=== PATIENT | male | born 1950 | race Caucasian/White ===

== ENCOUNTER 2017-11-27 07:11 | Emergency (ER) | payer MEDICARE, BC ==
[2017-11-27] MEDS ORDERED: Fentanyl 100 MCG/2 ML VIAL ONE (07:39)
[2017-11-27] MEDS ORDERED: Ketorolac Tromethamine 60 MG/2 ML VIAL ONE (07:39)
[2017-11-27] MEDS ORDERED: Lorazepam 2 MG/ML VIAL ONE (07:39)
[2017-11-27 07:43] LABS: #Basophils 0.1 thou/uL (0.0-0.2); #Eosinphils 0.2 thou/uL (0.0-0.7); #Lymphocytes 1.9 thou/uL (1.20-3.40); #Monocytes 1.1 thou/uL (0.11-0.59); #Neutrophils 10.3 thou/uL (1.40-6.50); %Basophils 0.4 % (0.0-1.0); %Eosinophils 1.2 % (0.0-10.0); %Lymphocytes 14.3 % (21.0-51.0); %Neutrophils 76.1 % (42.0-75.0); Hemoglobin 14.8 g/dL (14.0-18.0); Mean Corpuscular HGB CONC 34.2 g/dL (32.0-36.0); Mean Corpuscular Hemoglobin 30.2 pg (27.0-31.0); Mean Corpuscular Volume 88.3 fL (78.0-98.0); Mean Platelet Volume 8.3 fL (7.4-10.4); Platelet Count 211 thou/uL (130-400); RBC Distribution Width 12.2 % (11.5-14.5); Red Blood Cell (RBC) Count 4.91 mill/uL (4.70-6.10); White Blood Cell (WBC) Count 13.5 thou/uL (4.8-10.8)
--- NOTE | 2017-11-27 08:07 | RAD ---
PELVIS AP STANDARD: HISTORY: Pain. Injury 1 year ago. COMPARISON: Abdomen radiographs 06/10/2016. FINDINGS: There continues to be some enthesopathic changes of the greater trochanter. No acute fracture or mal alignment. Mild degenerative changes of the SI joints and pubic symphysis. IMPRESSION: No acute fracture or malalignment. Enthesopathic changes of the left greater trochanter demonstrate chronic gluteus medius/minimus tendinosis and greater trochanteric bursitis. POS: CET
--- NOTE | 2017-11-27 08:22 | RAD ---
LEFT HIP 2 VIEWS: INDICATION: Injury. Pain. COMPARISON: Radiograph 06/10/2016. FINDINGS: There are surgical clips in the medial left thigh. Mild enthesopathic changes of the greater trochan ter. No acute fracture or malalignment. IMPRESSION: Enthesopathic changes of the greater trochanter with some erosions along the greater trochanteric cor fracisco can be sequelae of chronic gluteus medius/minimus tendinosis and greater trochanteric bursitis. POS: CET
== END 2017-11-27 08:31 | disposition home or self-care (01) ==
LOC: ERS 07:11
DX: M25.552 Pain in left hip (principal); E11.9 Type 2 diabetes mellitus without complications; K21.9 Gastro-esophageal reflux disease without esophagitis; E78.5 Hyperlipidemia, unspecified; I10 Essential (primary) hypertension
CPT/HCPCS: 36415; 72170; 85025; 85652; 86140; 96372; J1885; J2060; J3010

== ENCOUNTER 2018-11-10 05:23 | Emergency (ER) | payer MEDICARE, BC ==
[2018-11-10 06:24] LABS: #Eosinphils 0.1 thou/uL (0.0-0.7); #Lymphocytes 0.6 thou/uL (1.20-3.40); #Neutrophils 5.9 thou/uL (1.40-6.50); %Basophils 0.3 % (0.0-1.0); %Eosinophils 1.2 % (0.0-10.0); %Monocytes 12.7 % (0.0-10.0); %Neutrophils 77.8 % (42.0-75.0); Hemoglobin 11.8 g/dL (14.0-18.0); Mean Corpuscular Hemoglobin 31.1 pg (27.0-31.0); Mean Corpuscular Volume 88.8 fL (78.0-98.0); Mean Platelet Volume 8.1 fL (7.4-10.4); Platelet Count 166 thou/uL (130-400); RBC Distribution Width 12.3 % (11.5-14.5); Red Blood Cell (RBC) Count 3.79 mill/uL (4.70-6.10); White Blood Cell (WBC) Count 7.5 thou/uL (4.8-10.8)
[2018-11-10 06:45] LABS: ALT (SGPT) 25 U/L (8-55); AST (SGOT) 21 U/L (5-34); Albumin 3.4 g/dL (3.4-4.8); Alkaline Phosphatase 68 U/L (40-150); Anion Gap 15 mmol/L (10-20); BUN (Urea Nitrogen) 10 mg/dL (8.4-25.7); Bilirubin, Total 0.6 mg/dL (0.2-1.2); Calc. Creatinine Clearance 0 mL/min (70-130); Calcium 8.5 mg/dL (7.8-10.44); Carbon Dioxide 26 mmol/L (23-31); Chloride 101 mmol/L (98-107); Estimated GFR-MDRD 86; Globulin 2.3 g/dL (2.4-3.5); Glucose 150 mg/dL (80-115); Potassium 3.6 mmol/L (3.5-5.1); Protein, Total 5.7 g/dL (5.8-8.1); Sodium 138 mmol/L (136-145)
[2018-11-10] MEDS ORDERED: Azithromycin 250 MG TAB ONE (06:45)
[2018-11-10] MEDS ORDERED: cefTRIAXone\\ROCEPHIN 1 GM VIAL ONE (06:45)
[2018-11-10] MEDS ORDERED: Lidocaine 1% (PF) 30 ML VIAL ONE (06:45)
--- NOTE | 2018-11-10 07:27 | RAD ---
CHEST 1 VIEW: INDICATION: Emergency exam. COMPARISON: Prior exam dated 01/31/2012. FINDINGS: There is persistent cardiomegaly. There is mild pulmonary vascular congestion. There is airway opac ity obscuring the left heart border suspicious for a lingular airspace opacity. Midline sternotomy c hanges are stable. No acute osseous abnormality is evident. IMPRESSION: 1. Findings suspicious for a lingular airspace opacity possibility related to pneumonia. Recommend a 2-view chest radiograph for confirmation. 2. Persistent cardiomegaly with mild pulmonary vascular congestion. POS: BH
== END 2018-11-10 07:15 | disposition home or self-care (01) ==
LOC: ERS 05:23
DX: J18.9 Pneumonia, unspecified organism (principal); I10 Essential (primary) hypertension; E11.9 Type 2 diabetes mellitus without complications; K21.9 Gastro-esophageal reflux disease without esophagitis; E78.5 Hyperlipidemia, unspecified; Z79.84 Long term (current) use of oral hypoglycemic drugs; Z79.82 Long term (current) use of aspirin; Z79.899 Other long term (current) drug therapy
CPT/HCPCS: 36415; 71045; 80053; 83880; 84484; 85025; 87804; 96372; J0696; J2001

== ENCOUNTER 2018-11-12 13:52 | Inpatient (IN) | payer MEDICARE, BC ==
[~2018-11-12 13:52] MED LIST: ISOVUE-370 76%-LOCM 1 ML ONE
[2018-11-12 14:48] LABS: Actual Bicarbonate (HCO3a) 25.1 mEq/L (22-28); Analyzer IN Cardio ER; Base Excess (BEa) 2.2 mEq/L (-2.0 to +3.0); CO2 Tension 33.5 mmHg (35.0-45.0); Calcium, Ionized 1.15 mmol/L (1.12-1.30); Carboxyhemoglobin (COHb) 0.6 gm% (0.0-3.0); Hemoglobin (Hb) 12.4 g/dL (14.0-18.0); O2 Tension (PaO2) 70.2 mmHg (> 80.0); Potassium - ABG Lab 4.15 mmol/L (3.70-5.30); pH, Arterial 7.49 (7.35-7.45)
[2018-11-12] MEDS ORDERED: Dexamethasone 10 MG/ML VIAL ONE (14:49)
[2018-11-12 14:51] LABS: ALV-art Gradient 37.655 (0-20); Puncture Site RRA
[2018-11-12] MEDS ORDERED: Albuterol Sulfate 2.5 mg/3 ml Neb ONE (14:54)
[2018-11-12] MEDS ORDERED: Albuterol Sulfate 2.5 mg/0.5 ml Neb ONE (14:54)
[2018-11-12 14:58] LABS: #Eosinphils 0.1 thou/uL (0.0-0.7); #Monocytes 0.7 thou/uL (0.11-0.59); #Neutrophils 5.9 thou/uL (1.40-6.50); %Basophils 0.1 % (0.0-1.0); %Eosinophils 1.8 % (0.0-10.0); %Lymphocytes 13.1 % (21.0-51.0); %Monocytes 8.8 % (0.0-10.0); %Neutrophils 76.2 % (42.0-75.0); Hemoglobin 11.6 g/dL (14.0-18.0); Mean Corpuscular HGB CONC 34.5 g/dL (32.0-36.0); Mean Corpuscular Hemoglobin 30.7 pg (27.0-31.0); Mean Platelet Volume 7.9 fL (7.4-10.4); Platelet Count 277 thou/uL (130-400); RBC Distribution Width 12.4 % (11.5-14.5); Red Blood Cell (RBC) Count 3.77 mill/uL (4.70-6.10); White Blood Cell (WBC) Count 7.8 thou/uL (4.8-10.8)
[2018-11-12 15:21] LABS: ALT (SGPT) 23 U/L (8-55); AST (SGOT) 17 U/L (5-34); Albumin 3.6 g/dL (3.4-4.8); Alkaline Phosphatase 67 U/L (40-150); Anion Gap 10 mmol/L (10-20); BUN (Urea Nitrogen) 9 mg/dL (8.4-25.7); Bilirubin, Total 0.3 mg/dL (0.2-1.2); CK (CPK) 201 U/L (30-200); Calc. Creatinine Clearance 0 mL/min (70-130); Calcium 9.2 mg/dL (7.8-10.44); Carbon Dioxide 28 mmol/L (23-31); Chloride 101 mmol/L (98-107); Estimated GFR-MDRD Greater than 90; Globulin 2.4 g/dL (2.4-3.5); Glucose 128 mg/dL (80-115); Lipase 21 U/L (8-78); Sodium 135 mmol/L (136-145)
--- NOTE | 2018-11-12 15:44 | CT ---
EXAM: CT pulmonary angiogram with IV contrast and three-dimensional reconstructions PROVIDED CLINICAL HISTORY: Shortness of breath COMPARISON: None FINDINGS: There is no evidence for central or segmental pulmonary embolus. Median sternotomy changes and CABG c hanges are seen. The heart, pericardium and great vessels demonstrate an otherwise unremarkable CT appearance. There is lingular consolidation compatible with pneumonia. There are small bilateral pleural effusion s. The airway appears patent and of normal caliber. There is no evidence for thoracic lymph node enlarge ment. The visualized portions of the upper abdomen appear unremarkable. The osseous structures demonstrate no concerning osteoblastic or osteolytic lesions. IMPRESSION: 1. No evidence for central or segmental pulmonary embolus. 2. Lingular pneumonia and small bilateral pleural effusions.
[2018-11-12] MEDS ORDERED: Bisacodyl 5 MG TAB PO PRN (17:11)
[2018-11-12] MEDS ORDERED: Calcium Carbonate 500 MG ChewTAB PO PRN (17:11)
[2018-11-12] MEDS ORDERED: Acetaminophen 650 MG Suppository PR PRN (17:11)
[2018-11-12] MEDS ORDERED: Dextrose 5% in Water 1,000 ML IV PRN (17:19)
[2018-11-12] MEDS ORDERED: Dextrose 50% Abboject 50 ML SYRINGE SLOW IVP PRN (17:19)
[2018-11-12 18:33] VITALS: BMI 34.0
[2018-11-12] MEDS ORDERED: Ondansetron ODT 4 MG TAB SL PRN (18:41)
[2018-11-12] MEDS ORDERED: Sodium Chloride 0.9% 1,000 ML IV SCH (18:41)
[2018-11-12] MEDS ORDERED: Ondansetron PF 4 MG/2 ML Vial IVP PRN (18:41)
--- NOTE | 2018-11-12 20:12 | HP ---
PRIMARY CARE PROVIDER: Logan Rey DO CHIEF COMPLAINT: Shortness of breath. HISTORY OF PRESENT ILLNESS: Mr. Arteaga is a pleasant 68-year-old gentleman, who was seen at [facility] on November 12, 2018. He was on a cruise to [place] from to of this month. On November 06, he was in [place] when he started having cough. The cough was dry. He is unsure regarding fevers. He returned to this area on November 08. That day, he had headache and a temperature of 102 degrees Fahrenheit. He saw his primary care provider on the 09 of November. He was started on amoxicillin and prednisone. On the morning of , he had a temperature of 101 degrees Fahrenheit. He therefore came to the emergency room. He received azithromycin and ceftriaxone and was discharged home on oral antibiotics. He continued to have symptoms. He also reports shortness of breath. He has been unable to fall asleep. He therefore presented to the emergency room. REVIEW OF SYSTEMS: All systems were reviewed and found to be negative except for the pertinent positives mentioned above. PAST MEDICAL HISTORY: Diabetes mellitus type 2, gastroesophageal reflux disease, dyslipidemia, hypertension, coronary artery disease. PAST SURGICAL HISTORY: Coronary artery bypass graft x3 and knee arthroscopy. SOCIAL HISTORY: Rare alcohol use, no current tobacco use or recreational drug use. FAMILY HISTORY: Open-heart surgery in his father. CODE STATUS: I discussed his code status. He is full code. ALLERGIES: NO KNOWN DRUG ALLERGIES. CURRENT MEDICATIONS: 1. Metformin 1000 mg 2 times a day. 2. Metoprolol succinate 100 mg daily. 3. Crestor 20 mg daily. 4. Ramipril 10 mg 2 times a day. 5. Aspirin 325 mg daily. 6. Protonix 40 mg daily. 7. Onglyza 5 mg daily. 8. Vascepa 1 g two times a day. PHYSICAL EXAMINATION: GENERAL: On examination, Mr. Arteaga is awake and alert, not in acute distress. VITAL SIGNS: Blood pressure is 152/80, pulse 74, respiratory rate 21, and oxygen saturation 91% on room air. He is afebrile. EYES: No scleral icterus. No conjunctival pallor. ENT: Moist mucosal membranes. No oropharyngeal erythema or exudates. NECK: Supple, nontender, trachea is midline. RESPIRATORY: Accessory muscles of breathing are not active. Chest wall movements are symmetric bilaterally. Lungs are clear to auscultation without wheeze, rhonchi, or crepitations. CARDIOVASCULAR: S1 and S2 are heard, regular. Peripheral pulses palpable. ABDOMEN: Soft, nontender, bowel sounds are heard. NEUROLOGIC: Cranial nerves 2 through 12 are intact. SKIN: No rashes or subcutaneous nodules. MUSCULOSKELETAL: Power is 5/5 in all 4 extremities. LYMPHATIC: No cervical lymphadenopathy. PSYCHIATRIC: Normal mood, normal affect, the patient is oriented to person, place, and time. LABORATORY DATA: Mr. Arteaga's labs and investigations were reviewed. He had CT angiogram of the chest, which showed lingular pneumonia and small bilateral pleural effusions. There was no evidence for central or segmental pulmonary embolus. He has normal white count, normocytic anemia with hemoglobin 11.6, normal platelet count, decreased sodium of 135, normal potassium, normal lactic acid, elevated CK of 201, unremarkable LFTs and mildly elevated BNP of 219.2. Arterial blood gases showed pH 7.49, pCO2 of 33.5, and PO2 of 70.2. ASSESSMENT AND PLAN: Mr. Arteaga is a pleasant 68-year-old gentleman, who was seen at [facility] on November 12, 2018. His problem list includes: 1. Community-acquired pneumonia: Mr. Arteaga is presenting with community-acquired pneumonia, likely bacterial due to gram-negative rods. He will be admitted to the hospital, since he has failed outpatient therapy. He has received intravenous levofloxacin today, since in the recent past he has received intravenous ceftriaxone and azithromycin without improvement in his symptoms. I will continue him on levofloxacin. Blood cultures have been sent, we will follow blood cultures. 2. Coronary artery disease: This appears to be stable, we will resume home medications. 3. Diabetes mellitus type 2: We will start him on Accu-Cheks and insulin sliding scale. We will continue metformin. 4. Gastroesophageal reflux disease: Stable, continue pantoprazole. Many thanks for allowing me to participate in your patient's care. Please feel free to contact me with any questions or concerns. LEVEL OF RISK: Moderate. LEVEL OF COMPLEXITY: Moderate. Job ID: [id number]
[2018-11-12] MEDS: Rosuvastatin 20 MG TAB PO SCH (21:28)
[2018-11-12] MEDS: Ramipril 5 MG CAP PO SCH (21:28)
[2018-11-12] MEDS: HumaLOG 300 UNITS/3 ML VIAL SC PRN (23:35)
[2018-11-13 04:06] LABS: #Lymphocytes 0.4 thou/uL (1.20-3.40); #Monocytes 0.4 thou/uL (0.11-0.59); #Neutrophils 7.2 thou/uL (1.40-6.50); %Basophils 0.1 % (0.0-1.0); %Eosinophils 0.2 % (0.0-10.0); %Lymphocytes 5.2 % (21.0-51.0); %Monocytes 4.5 % (0.0-10.0); %Neutrophils 90.1 % (42.0-75.0); Hemoglobin 11.1 g/dL (14.0-18.0); Mean Corpuscular Hemoglobin 30.7 pg (27.0-31.0); Mean Platelet Volume 7.7 fL (7.4-10.4); Platelet Count 289 thou/uL (130-400); RBC Distribution Width 12.2 % (11.5-14.5); Red Blood Cell (RBC) Count 3.61 mill/uL (4.70-6.10); White Blood Cell (WBC) Count 7.9 thou/uL (4.8-10.8)
[2018-11-13 04:28] LABS: Anion Gap 13 mmol/L (10-20); BUN (Urea Nitrogen) 9 mg/dL (8.4-25.7); Calc. Creatinine Clearance 127 mL/min (70-130); Calcium 8.8 mg/dL (7.8-10.44); Carbon Dioxide 23 mmol/L (23-31); Chloride 102 mmol/L (98-107); Estimated GFR-MDRD Greater than 90; Glucose 181 mg/dL (80-115); Potassium 3.7 mmol/L (3.5-5.1); Sodium 134 mmol/L (136-145)
[2018-11-13] MEDS ORDERED: Melatonin 3 MG TAB PO SCH (04:30)
[2018-11-13] MEDS: HumaLOG 300 UNITS/3 ML VIAL SC PRN (06:48)
[2018-11-13] MEDS: metFORMIN 500 MG TAB PO SCH ×2 (08:41→16:53)
[2018-11-13] MEDS: Enoxaparin Sodium 40 MG/0.4 ML SYRINGE SC SCH (08:42)
[2018-11-13] MEDS: Aspirin 325 mg Enteric Coated Tablet PO SCH (08:42)
[2018-11-13] MEDS: Multivitamin W/ Minerals 1 TAB PO SCH (08:42)
[2018-11-13] MEDS: Ramipril 5 MG CAP PO SCH ×2 (08:42→20:37)
[2018-11-13] MEDS: Ubidecarenone 50 MG CAP PO SCH (08:42)
[2018-11-13 10:21] LABS: Troponin I Less than 0.010 ng/mL (< 0.028)
[2018-11-13] MEDS: Furosemide 40 MG/4 ML VIAL SLOW IVP SCH (13:05)
--- NOTE | 2018-11-13 13:19 | PDOC.HOSPP ---
- Subjective Encounter Date: 11/13/18 Encounter Time: 07:40 Subjective: Pt seen for followup re: pneumonia. Feels short of breath. - Objective Vital Signs & Weight: Vital Signs (12 hours) Temp Pulse Resp BP BP Pulse Ox 11/13/18 11:57 98.4 F 72 16 117/68 98 11/13/18 08:42 128/75 11/13/18 07:39 97.6 F 62 16 128/75 100 11/13/18 04:13 98.1 F 72 20 124/68 95 11/13/18 04:09 98.1 F 72 20 124/68 95 11/13/18 01:36 78 18 99 Weight Admit Weight 230 lb Weight 230 lb 0.132 oz I&O: 11/12/18 11/13/18 11/14/18 06:59 06:59 06:59 Intake Total 1340 Output Total 900 Balance 440 Result Diagrams: 11/13/18 03:50 11/13/18 03:50 Additional Labs: Accuchecks 11/13/18 11/13/18 11/12/18 11:30 05:16 20:18 POC Glucose 119 H 186 H 233 H Labs and MARs reviewed by ne Hospitalist ROS - Review of Systems Respiratory: reports: cough, dry, SOB with excertion. denies: shortness of breath, hemoptysis, pleuritic pain, sputum, wheezing Cardiovascular: denies: chest pain, palpitations, orthopnea, paroxysmal noc. dyspnea, edema, light headedness - Medication Medications: Active Medications Generic Name Dose Route Start Last Admin Trade Name Freq PRN Reason Stop Dose Admin Aspirin 325 mg 11/13/18 09:00 11/13/18 08:42 Ecotrin PO 325 mg DAILY NGUYEN Administration Coenzyme Q10 100 mg 11/13/18 09:00 11/13/18 08:42 Coenzyme Q10 PO 100 mg DAILY NGUYEN Administration Enoxaparin Sodium 40 mg 11/13/18 09:00 11/13/18 08:42 Lovenox SC 40 mg 0900 NGUYEN Administration Furosemide 40 mg 11/13/18 09:00 11/13/18 13:05 Lasix SLOW IVP 40 mg DAILY NGUYEN Administration Insulin Human Lispro 0 units 11/12/18 17:19 11/13/18 06:48 Humalog SC 2 unit .MILD SLIDING SCALE PRN Administration Mild Correctional Scale Iron/Minerals/Multivitamins 1 tab 11/13/18 09:00 11/13/18 08:42 Theragran M PO 1 tab DAILY NGUYEN Administration Metformin HCl 1,000 mg 11/13/18 08:00 11/13/18 08:41 Glucophage PO 1,000 mg BID-WM NGUYEN Administration Metoprolol Succinate 100 mg 11/13/18 09:00 11/13/18 08:42 Toprol Xl PO 100 mg DAILY NGUYEN Administration Pantoprazole Sodium 40 mg 11/13/18 09:00 11/13/18 08:42 Protonix PO 40 mg DAILY NGUYEN Administration Ramipril 10 mg 11/12/18 21:00 11/13/18 08:42 Altace PO 10 mg BID NGUYEN Administration Rosuvastatin Calcium 20 mg 11/12/18 21:00 11/12/18 21:28 Crestor PO 20 mg HS NGUYEN Administration Sodium Chloride 10 ml 11/12/18 21:00 11/13/18 08:41 Flush - Normal Saline IVF 10 ml Q12HR NGUYEN Administration - Exam General Appearance: NAD Eye: anicteric sclera ENT: dry oral mucosa Neck: supple Heart: RRR, no rubs Respiratory: wheezes Gastrointestinal: soft, non-tender Extremities: no cyanosis, 1+ LE edema Skin: no rashes Neurological: no weakness Musculoskeletal: no muscle wasting Psychiatric: normal affect, normal behavior Hosp A/P (1) Pneumonia Code(s): J18.9 - PNEUMONIA, UNSPECIFIED ORGANISM Status: Acute (2) CHF (congestive heart failure) Code(s): I50.9 - HEART FAILURE, UNSPECIFIED Status: Suspected (3) CAD (coronary artery disease) Code(s): I25.10 - ATHSCL HEART DISEASE OF [place] CORONARY ARTERY W/O ANG PCTRS Status: Chronic (4) DM2 (diabetes mellitus, type 2) Status: Chronic (5) GERD (gastroesophageal reflux disease) Code(s): K21.9 - GASTRO-ESOPHAGEAL REFLUX DISEASE WITHOUT ESOPHAGITIS Status: Chronic (6) Dyslipidemia Code(s): E78.5 - HYPERLIPIDEMIA, UNSPECIFIED Status: Chronic - Plan Continue IV levofloxacin. Check 2D echo, trial IV furosemide (BNP elevated, LE edema, h/o CAD). HTN controlled. Reasonable control of blood sugars. Hyponatremia mild, likely asymptomatic. CAD stable.
[2018-11-13 15:19] LABS: Troponin I 0.011 ng/mL (< 0.028)
[2018-11-13] MEDS ORDERED: ALPRAZolam 0.25 MG TAB PO PRN (16:23)
[2018-11-13] MEDS: Rosuvastatin 20 MG TAB PO SCH (20:38)
[2018-11-13] MEDS: Melatonin 3 MG TAB PO PRN (20:38)
[2018-11-14] MEDS: Acetaminophen 325 MG TAB PO PRN ×2 (03:36→12:26)
[2018-11-14 05:24] LABS: #Eosinphils 0.2 thou/uL (0.0-0.7); #Lymphocytes 1.2 thou/uL (1.20-3.40); #Monocytes 0.9 thou/uL (0.11-0.59); #Neutrophils 9.3 thou/uL (1.40-6.50); %Basophils 0.3 % (0.0-1.0); %Eosinophils 1.3 % (0.0-10.0); %Lymphocytes 10.3 % (21.0-51.0); %Monocytes 7.5 % (0.0-10.0); %Neutrophils 80.6 % (42.0-75.0); Hemoglobin 11.6 g/dL (14.0-18.0); Mean Corpuscular HGB CONC 34.1 g/dL (32.0-36.0); Mean Corpuscular Hemoglobin 30.3 pg (27.0-31.0); Mean Platelet Volume 7.5 fL (7.4-10.4); Platelet Count 348 thou/uL (130-400); RBC Distribution Width 12.4 % (11.5-14.5); Red Blood Cell (RBC) Count 3.83 mill/uL (4.70-6.10); White Blood Cell (WBC) Count 11.5 thou/uL (4.8-10.8)
[2018-11-14 05:25] LABS: Anion Gap 10 mmol/L (10-20); BUN (Urea Nitrogen) 11 mg/dL (8.4-25.7); Calc. Creatinine Clearance 124 mL/min (70-130); Calcium 8.7 mg/dL (7.8-10.44); Carbon Dioxide 28 mmol/L (23-31); Chloride 99 mmol/L (98-107); Estimated GFR-MDRD Greater than 90; Glucose 130 mg/dL (80-115); Potassium 3.5 mmol/L (3.5-5.1); Sodium 133 mmol/L (136-145)
[2018-11-14] MEDS: Aspirin 325 mg Enteric Coated Tablet PO SCH (09:12)
[2018-11-14] MEDS: Ubidecarenone 50 MG CAP PO SCH (09:12)
[2018-11-14] MEDS: Ramipril 5 MG CAP PO SCH ×2 (09:12→20:35)
[2018-11-14] MEDS: guaiFENesin ER 600 MG TAB PO SCH ×2 (09:12→20:36)
[2018-11-14] MEDS: Enoxaparin Sodium 40 MG/0.4 ML SYRINGE SC SCH (09:12)
[2018-11-14] MEDS: Furosemide 40 MG/4 ML VIAL SLOW IVP SCH (09:13)
[2018-11-14] MEDS: Multivitamin W/ Minerals 1 TAB PO SCH (09:13)
[2018-11-14] MEDS: metFORMIN 500 MG TAB PO SCH ×2 (09:13→16:28)
[2018-11-14] MEDS ORDERED: Lorazepam 0.5 MG TAB PO PRN (10:18)
[2018-11-14] MEDS ORDERED: Benzonatate 100 MG CAP PO SCH (10:30)
--- NOTE | 2018-11-14 14:16 | PDOC.HOSPP ---
- Subjective Encounter Date: 11/14/18 Encounter Time: 07:40 Subjective: Pt seen for followup re: pneumonia. Feels slightly better. Still has orthopnea , SOBOE. - Objective Vital Signs & Weight: Vital Signs (12 hours) Temp Pulse Resp BP Pulse Ox 11/14/18 09:00 98.4 F 68 16 147/76 H 98 11/14/18 08:42 98.2 F 81 18 155/79 H 92 L 11/14/18 07:07 75 16 95 11/14/18 04:00 98.7 F 73 19 134/72 95 Weight Admit Weight 230 lb Weight 230 lb 0.132 oz I&O: 11/13/18 11/14/18 11/15/18 06:59 06:59 06:59 Intake Total 1340 1200 Output Total 900 Balance 440 1200 Result Diagrams: 11/14/18 04:06 11/14/18 04:06 Additional Labs: Accuchecks 11/14/18 11/14/18 11/13/18 11:34 05:42 20:51 POC Glucose 137 H 122 H 110 11/13/18 15:46 POC Glucose 90 Labs and MARs reviewed by wa Hospitalist ROS - Review of Systems Respiratory: reports: cough, SOB with excertion, sputum. denies: dry, shortness of breath, hemoptysis, pleuritic pain, wheezing Cardiovascular: reports: orthopnea. denies: chest pain, palpitations, paroxysmal noc. dyspnea, edema, light headedness - Medication Medications: Active Medications Generic Name Dose Route Start Last Admin Trade Name Freq PRN Reason Stop Dose Admin Acetaminophen 650 mg 11/12/18 17:11 11/14/18 12:26 Tylenol PO 650 mg Q4H PRN Administration Headache/Fever/Mild Pain (1-3) Albuterol/Ipratropium 3 ml 11/14/18 07:00 11/14/18 13:49 Duoneb NEB 3 ml [id number] NGUYEN Administration Aspirin 325 mg 11/13/18 09:00 11/14/18 09:12 Ecotrin PO 325 mg DAILY NGUYEN Administration Coenzyme Q10 100 mg 11/13/18 09:00 11/14/18 09:12 Coenzyme Q10 PO 100 mg DAILY NGUYEN Administration Enoxaparin Sodium 40 mg 11/13/18 09:00 11/14/18 09:12 Lovenox SC 40 mg 0900 NGUYEN Administration Furosemide 40 mg 11/13/18 09:00 11/14/18 09:13 Lasix SLOW IVP 40 mg DAILY NGUYEN Administration Guaifenesin 600 mg 11/14/18 09:00 11/14/18 09:12 Mucinex PO 600 mg Q12HR NGUYEN Administration Levofloxacin 750 mg/ Device 150 mls @ 100 mls/hr 11/13/18 15:00 11/13/18 15: 28 IVPB 150 mls Q24HR NGUYEN Administration Insulin Human Lispro 0 units 11/12/18 17:19 11/13/18 06:48 Humalog SC 2 unit .MILD SLIDING SCALE PRN Administration Mild Correctional Scale Iron/Minerals/Multivitamins 1 tab 11/13/18 09:00 11/14/18 09:13 Theragran M PO 1 tab DAILY NGUYEN Administration Melatonin 3 mg 11/13/18 16:23 11/13/18 20:38 Melatonin PO 3 mg HSPRN PRN Administration Insomnia Metformin HCl 1,000 mg 11/13/18 08:00 11/14/18 09:13 Glucophage PO 1,000 mg BID-WM NGUYEN Administration Metoprolol Succinate 100 mg 11/13/18 09:00 11/14/18 09:13 Toprol Xl PO 100 mg DAILY NGUYEN Administration Pantoprazole Sodium 40 mg 11/13/18 09:00 11/14/18 09:13 Protonix PO 40 mg DAILY NGUYEN Administration Ramipril 10 mg 11/12/18 21:00 11/14/18 09:12 Altace PO 10 mg BID NGUYEN Administration Rosuvastatin Calcium 20 mg 11/12/18 21:00 11/13/18 20:38 Crestor PO 20 mg HS NGUYEN Administration Sodium Chloride 10 ml 11/12/18 21:00 11/14/18 09:16 Flush - Normal Saline IVF 10 ml Q12HR NGUYEN Administration - Exam General - other findings: Obese Eye: anicteric sclera ENT: moist mucosa Neck: supple, no thyromegaly Heart: RRR Respiratory: CTAB Gastrointestinal: soft, non-tender Extremities: 1+ LE edema Psychiatric: normal affect, normal behavior Hosp A/P (1) Pneumonia Code(s): J18.9 - PNEUMONIA, UNSPECIFIED ORGANISM Status: Acute (2) CHF (congestive heart failure) Code(s): I50.9 - HEART FAILURE, UNSPECIFIED Status: Suspected (3) CAD (coronary artery disease) Code(s): I25.10 - ATHSCL HEART DISEASE OF [place] CORONARY ARTERY W/O ANG PCTRS Status: Chronic (4) DM2 (diabetes mellitus, type 2) Status: Chronic (5) GERD (gastroesophageal reflux disease) Code(s): K21.9 - GASTRO-ESOPHAGEAL REFLUX DISEASE WITHOUT ESOPHAGITIS Status: Chronic (6) Dyslipidemia Code(s): E78.5 - HYPERLIPIDEMIA, UNSPECIFIED Status: Chronic - Plan plan discussed w/ family, continue antibiotics, out of bed/ambulate Continue IV levofloxacin. Consult cardiology re: ? CHF. HTN controlled. Continue accuchecks, insulin sliding scale. Hyponatremia mild. Discontinue Xanax, add PRN lorazepam. Add Tessalon.
[2018-11-14] MEDS: Benzonatate 100 MG CAP PO SCH ×2 (14:43→20:36)
[2018-11-14] MEDS: Rosuvastatin 20 MG TAB PO SCH (20:36)
[2018-11-14] MEDS: Melatonin 3 MG TAB PO PRN (21:11)
--- NOTE | 2018-11-14 21:58 | CON ---
DATE OF CONSULTATION: HISTORY OF PRESENT ILLNESS: Clyde Arteaga is a 68-year-old white male, patient of Dr. Lewis. In January 2012, he had a non-STEMI and underwent CABG x3 with JURADO to the LAD, saphenous vein graft to the obtuse marginal, and saphenous vein graft to the right posterolateral marginal branch. Postoperatively, he had some transient atrial fibrillation. He was placed on amiodarone. He has been followed by Dr. Lewis since that time and overall has done well. Last echocardiogram in the office was in June 2015. He had normal left ventricular systolic function, moderate mitral regurgitation, mild tricuspid regurgitation. He was last seen in July 2018 and was without any symptoms. He recently went on a cruise to [place]. He returned home on November 08 and began to have a temperature to 102 degrees. Following day, he was started on amoxicillin and prednisone. However, he continued to have temperatures up to 101 and came to the emergency room. He received azithromycin and ceftriaxone, and was discharged on oral antibiotics. He continued to be short of breath, unable to sleep at night, unable to catch his breath when he would be supine in bed and was admitted for further treatment. He denies any chest discomfort. He has mild edema at times. PAST MEDICAL HISTORY: Hypertension, hyperlipidemia, coronary artery disease, diabetes, GERD. OPERATIONS: CABG x3, and knee arthroscopy. MEDICATIONS: 1. Aspirin 325 daily. 2. Metformin 1000 mg b.i.d. 3. Vascepa 1 g b.i.d. 4. Metoprolol/hydrochlorothiazide 100/12.5 daily. 5. Protonix 40 daily. 6. Ramipril 10 mg b.i.d. 7. Rosuvastatin 20 mg q.h.s. 8. Onglyza 5 mg daily. ALLERGIES: NONE. SOCIAL HISTORY: He does not smoke. Rarely drinks. REVIEW OF SYSTEMS: Unremarkable except as noted above. PHYSICAL EXAMINATION: VITAL SIGNS: Blood pressure 147/76, pulse 68. HEENT: PERRL. NECK: Supple. CHEST: Clear. CARDIAC: S1 and S2 normal without any S3 or S4 or murmurs. Carotid upstrokes normal without bruits. ABDOMEN: Normal bowel sounds without tenderness. EXTREMITIES: Reveal no clubbing, cyanosis, or edema. NEUROLOGIC: Grossly intact. LABORATORY DATA: EKG reveals normal sinus rhythm with first-degree AV block, nonspecific T wave changes, possible anterior infarction. Echocardiogram revealed ejection fraction of 55% to 60%, moderate left atrial enlargement, mild mitral regurgitation, [id number] tricuspid regurgitation, [id number] pulmonic regurgitation. Chest x-ray revealed cardiomegaly with mild pulmonary vascular congestion, possible left lung pneumonia. CTA of the chest revealed no evidence of pulmonary embolism. There is lingular pneumonia and small bilateral pleural effusions. Sodium 133, potassium 3.5, carbon dioxide 99, creatinine 0.83, BUN 11. Cardiac enzymes are unremarkable. BNP 219.2. White count 11,500, hemoglobin 11.6, hematocrit 34.1, platelets 348,000. IMPRESSION: 1. Lingular pneumonia with temperature elevation up to 102. 2. Dyspnea on exertion as well as episodes of paroxysmal nocturnal dyspnea with this current illness. He certainly may have some degree of diastolic dysfunction with slightly elevated BNP. His systolic function appears very normal on echo. He has been given intravenous Lasix for the last 2 days. However, there is no accurate input and output and so I am not certain as to his response to the diuretic, but clinically, he states that he is able to lie almost completely flat in bed at the present time. 3. Status post coronary artery bypass graft x3. 4. Hypertension. 5. Hypercholesterolemia. 6. Chronic obstructive pulmonary disease. 7. Diabetes. PLAN: The patient will continue to be treated with low-dose intravenous diuretics and his renal function will continue to be followed closely. Strict I's and O's will be ordered. Job ID: [id number] MTDD
[2018-11-15 05:32] LABS: #Eosinphils 0.2 thou/uL (0.0-0.7); #Lymphocytes 1.3 thou/uL (1.20-3.40); #Monocytes 0.7 thou/uL (0.11-0.59); #Neutrophils 5.5 thou/uL (1.40-6.50); %Basophils 0.2 % (0.0-1.0); %Eosinophils 2.9 % (0.0-10.0); %Lymphocytes 16.9 % (21.0-51.0); %Monocytes 9.2 % (0.0-10.0); %Neutrophils 70.8 % (42.0-75.0); Mean Corpuscular HGB CONC 34.7 g/dL (32.0-36.0); Mean Corpuscular Hemoglobin 30.8 pg (27.0-31.0); Mean Corpuscular Volume 88.8 fL (78.0-98.0); Mean Platelet Volume 7.7 fL (7.4-10.4); Platelet Count 320 thou/uL (130-400); RBC Distribution Width 12.4 % (11.5-14.5); Red Blood Cell (RBC) Count 3.89 mill/uL (4.70-6.10); White Blood Cell (WBC) Count 7.7 thou/uL (4.8-10.8)
[2018-11-15 06:19] LABS: Anion Gap 14 mmol/L (10-20); BUN (Urea Nitrogen) 9 mg/dL (8.4-25.7); Calc. Creatinine Clearance 121 mL/min (70-130); Calcium 9.1 mg/dL (7.8-10.44); Carbon Dioxide 26 mmol/L (23-31); Chloride 100 mmol/L (98-107); Estimated GFR-MDRD 89; Glucose 129 mg/dL (80-115); Potassium 3.5 mmol/L (3.5-5.1); Sodium 136 mmol/L (136-145)
[2018-11-15] MEDS: Furosemide 40 MG/4 ML VIAL SLOW IVP SCH ×2 (08:12→14:34)
[2018-11-15] MEDS: guaiFENesin ER 600 MG TAB PO SCH ×2 (08:12→20:44)
[2018-11-15] MEDS: Aspirin 325 mg Enteric Coated Tablet PO SCH (08:12)
[2018-11-15] MEDS: metFORMIN 500 MG TAB PO SCH ×2 (08:12→18:17)
[2018-11-15] MEDS: Ramipril 5 MG CAP PO SCH ×2 (08:12→20:43)
[2018-11-15] MEDS: Multivitamin W/ Minerals 1 TAB PO SCH (08:13)
[2018-11-15] MEDS: Enoxaparin Sodium 40 MG/0.4 ML SYRINGE SC SCH (08:13)
[2018-11-15] MEDS: Benzonatate 100 MG CAP PO SCH ×3 (08:13→20:44)
[2018-11-15] MEDS: Ubidecarenone 50 MG CAP PO SCH (08:13)
--- NOTE | 2018-11-15 13:55 | PDOC.HOSPP ---
- Subjective Encounter Date: 11/15/18 Encounter Time: 08:20 Subjective: Pt seen for followup re: pneumonia. Feels better. - Objective Vital Signs & Weight: Vital Signs (12 hours) Temp Pulse Resp BP BP Pulse Ox 11/15/18 13:30 79 16 98 11/15/18 11:05 97.8 F 71 18 136/84 96 11/15/18 08:14 97.9 F 84 16 144/82 H 93 L 11/15/18 08:12 144/82 H 11/15/18 07:26 75 16 94 L 11/15/18 04:00 97.9 F 72 18 123/70 94 L 11/15/18 02:09 69 18 92 L Weight Admit Weight 230 lb Weight 230 lb 0.132 oz I&O: 11/14/18 11/15/18 11/16/18 06:59 06:59 06:59 Intake Total 1200 1850 Output Total 1850 Balance 1200 0 Result Diagrams: 11/15/18 04:37 11/15/18 04:37 Additional Labs: Accuchecks 11/15/18 11/15/18 11/14/18 11:04 05:39 20:34 POC Glucose 114 H 130 H 134 H 11/14/18 18:49 POC Glucose 128 H Labs and MARs reviewed by vt Hospitalist ROS - Review of Systems Respiratory: reports: cough, dry, SOB with excertion. denies: shortness of breath, hemoptysis, pleuritic pain, sputum, wheezing Cardiovascular: denies: chest pain, palpitations, orthopnea, paroxysmal noc. dyspnea, edema, light headedness - Medication Medications: Active Medications Generic Name Dose Route Start Last Admin Trade Name Freq PRN Reason Stop Dose Admin Acetaminophen 650 mg 11/12/18 17:11 11/14/18 12:26 Tylenol PO 650 mg Q4H PRN Administration Headache/Fever/Mild Pain (1-3) Albuterol/Ipratropium 3 ml 11/14/18 07:00 11/15/18 13:30 Duoneb NEB 3 ml [id number] NGUYEN Administration Aspirin 325 mg 11/13/18 09:00 11/15/18 08:12 Ecotrin PO 325 mg DAILY NGUYEN Administration Benzonatate 100 mg 11/14/18 15:00 11/15/18 08:13 Tessalon PO 100 mg TID NGUYEN Administration Coenzyme Q10 100 mg 11/13/18 09:00 11/15/18 08:13 Coenzyme Q10 PO 100 mg DAILY NGUYEN Administration Enoxaparin Sodium 40 mg 11/13/18 09:00 11/15/18 08:13 Lovenox SC 40 mg 0900 NGUYEN Administration Guaifenesin 600 mg 11/14/18 09:00 11/15/18 08:12 Mucinex PO 600 mg Q12HR NGUYEN Administration Levofloxacin 750 mg/ Device 150 mls @ 100 mls/hr 11/13/18 15:00 11/14/18 14: 51 IVPB 150 mls Q24HR NGUYEN Administration Insulin Human Lispro 0 units 11/12/18 17:19 11/13/18 06:48 Humalog SC 2 unit .MILD SLIDING SCALE PRN Administration Mild Correctional Scale Iron/Minerals/Multivitamins 1 tab 11/13/18 09:00 11/15/18 08:13 Theragran M PO 1 tab DAILY NGUYEN Administration Melatonin 3 mg 11/13/18 16:23 11/14/18 21:11 Melatonin PO 3 mg HSPRN PRN Administration Insomnia Metformin HCl 1,000 mg 11/13/18 08:00 11/15/18 08:12 Glucophage PO 1,000 mg BID-WM NGUYEN Administration Metoprolol Succinate 100 mg 11/13/18 09:00 11/15/18 08:12 Toprol Xl PO 100 mg DAILY NGUYEN Administration Pantoprazole Sodium 40 mg 11/13/18 09:00 11/15/18 08:12 Protonix PO 40 mg DAILY NGUYEN Administration Ramipril 10 mg 11/12/18 21:00 11/15/18 08:12 Altace PO 10 mg BID NGUYEN Administration Rosuvastatin Calcium 20 mg 11/12/18 21:00 11/14/18 20:36 Crestor PO 20 mg HS NGUYEN Administration Sodium Chloride 10 ml 11/12/18 21:00 11/15/18 08:13 Flush - Normal Saline IVF 10 ml Q12HR NGUYEN Administration - Exam General - other findings: Obese Eye: anicteric sclera ENT: moist mucosa Neck: supple, symmetric Heart: RRR Respiratory: CTAB Gastrointestinal: soft, non-tender Extremities: 1+ LE edema Skin: no rashes Neurological: no weakness Psychiatric: normal affect, normal behavior Hosp A/P (1) Pneumonia Code(s): J18.9 - PNEUMONIA, UNSPECIFIED ORGANISM Status: Acute (2) CHF (congestive heart failure) Code(s): I50.9 - HEART FAILURE, UNSPECIFIED Status: Suspected (3) CAD (coronary artery disease) Code(s): I25.10 - ATHSCL HEART DISEASE OF [place] CORONARY ARTERY W/O ANG PCTRS Status: Chronic (4) DM2 (diabetes mellitus, type 2) Status: Chronic (5) GERD (gastroesophageal reflux disease) Code(s): K21.9 - GASTRO-ESOPHAGEAL REFLUX DISEASE WITHOUT ESOPHAGITIS Status: Chronic (6) Dyslipidemia Code(s): E78.5 - HYPERLIPIDEMIA, UNSPECIFIED Status: Chronic - Plan continue antibiotics, out of bed/ambulate Continue IV levofloxacin, switch to PO at the time of discharge. Appreciate cardiology service input. HTN controlled. Continue accuchecks and insulin sliding scale.
[2018-11-15] MEDS: Melatonin 3 MG TAB PO PRN (20:43)
[2018-11-15] MEDS: Rosuvastatin 20 MG TAB PO SCH (20:44)
[2018-11-16] MEDS: Acetaminophen 325 MG TAB PO PRN (02:20)
[2018-11-16] MEDS: Furosemide 40 MG/4 ML VIAL SLOW IVP SCH (05:34)
[2018-11-16] MEDS ORDERED: Potassium Chloride 20 MEQ TAB PO SCH (08:00)
[2018-11-16] MEDS: Ubidecarenone 50 MG CAP PO SCH (08:33)
[2018-11-16] MEDS: Benzonatate 100 MG CAP PO SCH (08:33)
[2018-11-16] MEDS: metFORMIN 500 MG TAB PO SCH (08:33)
[2018-11-16] MEDS: Aspirin 325 mg Enteric Coated Tablet PO SCH (08:34)
[2018-11-16] MEDS: Enoxaparin Sodium 40 MG/0.4 ML SYRINGE SC SCH (08:34)
[2018-11-16] MEDS: Multivitamin W/ Minerals 1 TAB PO SCH (08:34)
[2018-11-16] MEDS: Ramipril 5 MG CAP PO SCH (08:34)
[2018-11-16] MEDS: guaiFENesin ER 600 MG TAB PO SCH (08:34)
[2018-11-16 11:10] VITALS: BP 122/77; TEMP 98.3
--- NOTE | 2018-11-16 15:35 | PQF ---
CLINICAL DOCUMENTATION IMPROVEMENT CLARIFICATION FORM: ICD-10 Updated PLEASE DO AN ADDENDUM TO THE PROGRESS NOTE WITH ANY DOCUMENTATION UPDATES OR ADDITIONS AND CARRY THROUGH TO DC SUMMARY. THANK YOU. DATE: 11/16/2018 ATTN: Dr. Murray Please exercise your independent, professional judgment in responding to the clarification form. Clinical indicators are provided on the bottom of this form for your review Please check appropriate box(s): HEART FAILURE: A. TYPE: [ ] Systolic / HFrEF [ ] Diastolic / HFpEF [ ] Combined Systolic / Diastolic B. ACUITY [ ] Acute [ ] Acute on Chronic [ ] Chronic [ ] Other diagnosis [ ] Unable to determine In addition, please specify: Present on Admission (POA): [ ] Yes [ ] No [ ] Unable to determine For continuity of documentation, please document condition throughout progress notes and discharge summary. Thank You. CLINICAL INDICATORS - SIGNS / SYMPTOMS / LABS 11/14 (Yaw) Echo revealed EF of 55% to 60% He certainly may have some degree of diastolic dysfunction with slightly elevated BNP. PN 11/14-24: CHF. Suspected. RISKS: H&P 11/12: DM2, HTN, CAD, CABG x3. TREATMENT: PN 11/14: Check 2D echo, trial IV furosemide Thank you, Janell (This form is maintained as a part of the permanent medical record) 2014 [employer]. All Rights Reserved Janell Ahumada RN, BSN [email or web address] Office: [phone] [facility]
--- NOTE | 2018-11-17 02:26 | DIS ---
DATE OF ADMISSION: 11/12/2018 DATE OF DISCHARGE: 11/16/2018 PRIMARY CARE PROVIDER: Logan Rey, DO DISCHARGE DIAGNOSES: 1. Community-acquired pneumonia. 2. Acute diastolic congestive heart failure, [place] Heart Association class III, present on admission. CONDITION OF PATIENT ON THE DAY OF DISCHARGE: Stable. I assessed Mr. Arteaga on the day of discharge. He denies any chest pain or shortness of breath. Vital signs are stable. S1 and S2 are heard, regular. Lungs are clear to auscultation bilaterally. CONSULTATIONS DURING THIS HOSPITALIZATION: Cardiology, Dr. Tidwell. FOLLOWUP APPOINTMENTS: The patient is advised to follow up with his primary care provider in 3 to 5 days time. He is also advised to follow up with Cardiology, Dr. Lewis, in 2 to 3 weeks. DISCHARGE MEDICATIONS: 1. Aspirin 325 mg daily. 2. Vascepa 1 g 2 times a day. 3. Metformin 1000 mg 2 times a day. 4. Metoprolol succinate/hydrochlorothiazide one tablet daily. 5. Protonix 40 mg daily. 6. Ramipril 10 mg 2 times a day. 7. Crestor 20 mg daily. 8. Saxagliptin 5 mg daily. 9. Lasix 40 mg daily. 10. Levofloxacin 750 mg daily for 5 more days. 11. Potassium chloride 20 mEq daily. 12. Melatonin 3 mg at bedtime as needed. HOSPITAL COURSE: Mr. Arteaga is a pleasant 68-year-old gentleman, who was admitted to [facility] for community-acquired pneumonia. He also had elevated BNP and was found to be in acute congestive heart failure. He was treated with intravenous diuretics. His 2D echocardiogram showed left ventricular ejection fraction of 55% to 60%, normal-sized right ventricular cavity, moderately dilated left atrium, normal right atrium size, mild mitral regurgitation, structurally normal aortic valve, [id number] tricuspid regurgitation and [id number] pulmonic regurgitation. He was seen by Cardiology Service. He improved with intravenous antibiotics and diuretics. He is being discharged home in a stable condition. On November 15, he had white count of 7700, hemoglobin 12, platelet count 320,000. Normal electrolytes and normal creatinine. Many thanks for allowing me to participate in your patient's care. Please feel free to contact me with any questions or concerns. DISCHARGE DESTINATION: Home. TIME SPENT: Total amount of time spent coordinating this discharge: 20 minutes. Job ID: [id number]
[2018-11-17] MEDS ORDERED: Furosemide 40 MG TAB PO SCH (07:30)
== END 2018-11-16 12:53 | disposition home or self-care (01) | DRG 291 ==
LOC: ERS 13:52 → SURG B 18:27
PROVIDERS: ADMIT Internal Medicine; ATTEND Internal Medicine
DX: I11.0 Hypertensive heart disease with heart failure (principal); I50.31 Acute diastolic (congestive) heart failure; J18.9 Pneumonia, unspecified organism; E87.1 Hypo-osmolality and hyponatremia; J44.0 Chronic obstructive pulmonary disease with (acute) lower respiratory infection; E11.9 Type 2 diabetes mellitus without complications; K21.9 Gastro-esophageal reflux disease without esophagitis; E78.5 Hyperlipidemia, unspecified; E78.00 Pure hypercholesterolemia, unspecified; I08.1 Rheumatic disorders of both mitral and tricuspid valves; I37.1 Nonrheumatic pulmonary valve insufficiency; I25.10 Atherosclerotic heart disease of native coronary artery without angina pectoris; Z79.84 Long term (current) use of oral hypoglycemic drugs; Z79.82 Long term (current) use of aspirin; Z79.899 Other long term (current) drug therapy; E66.9 Obesity, unspecified; I25.2 Old myocardial infarction; Z95.1 Presence of aortocoronary bypass graft; Z87.891 Personal history of nicotine dependence; Z68.34 Body mass index [BMI] 34.0-34.9, adult
CPT/HCPCS: 36415; 36416; 71045; 71275; 80048; 80053; 82550; 82805; 83605; 83690; 83880; 84484; 85025; 87040; 87804; 93005; 93010; 93306; 93798; 94640; 96365; 96366; 96372; 96375; J0696; J1100; J1650; J1940; J1956; J2001; J7611; J7620; Q9966

== ENCOUNTER 2019-08-18 14:01 | Outpatient (CLI) | payer MEDICARE, BC ==
--- NOTE | 2019-08-18 15:28 | RAD ---
EXAM: LUMBAR SPINE THREE VIEWS: 08/17/29 HISTORY: Lumbar stenosis, synovial cysts, back pain, pain down both legs and calves. Neutral, flexion, extension, upright and lateral views of the lumbar spine are performed. Very mild s pondylosis changes. No evidence for significant malalignment. No acute fracture or dislocation. IMPRESSION: Mild spondylosis. No evidence for abnormal translation between flexion and extension. POS: AH
== END 2019-08-18 14:02 | disposition home or self-care (01) ==
LOC: TBSIIMAG 14:01
PROVIDERS: ATTEND Neurological Surgery
DX: M48.061 Spinal stenosis, lumbar region without neurogenic claudication (principal); M71.30 Other bursal cyst, unspecified site; M47.816 Spondylosis without myelopathy or radiculopathy, lumbar region
CPT/HCPCS: 72100

== ENCOUNTER 2019-12-04 07:49 | Outpatient (CLI) | payer MEDICARE, BC, OTHER ==
[2019-12-04 11:26] LABS: Hemoglobin 14.7 g/dL (14.0-18.0); Mean Corpuscular HGB CONC 34.3 g/dL (32.0-36.0); Mean Corpuscular Hemoglobin 30.6 pg (27.0-31.0); Mean Corpuscular Volume 89.2 fL (78.0-98.0); Mean Platelet Volume 9.5 fL (7.4-10.4); Platelet Count 207 thou/uL (130-400); RBC Distribution Width 12.4 % (11.5-14.5); White Blood Cell (WBC) Count 9.2 thou/uL (4.8-10.8)
[2019-12-04 11:34] LABS: Anion Gap 15 mmol/L (10-20); BUN (Urea Nitrogen) 14 mg/dL (8.4-25.7); Calc. Creatinine Clearance 0 mL/min (70-130); Calcium 9.4 mg/dL (7.8-10.44); Carbon Dioxide 27 mmol/L (23-31); Chloride 102 mmol/L (98-107); Estimated GFR-MDRD 76; Glucose 143 mg/dL (80-115); Potassium 4.8 mmol/L (3.5-5.1); Sodium 139 mmol/L (136-145)
[2019-12-04 11:37] LABS: INR-International Normal Ratio 0.8; PTT 28.5 sec (22.9-36.1); Prothrombin Time 11.6 sec (12.0-14.7)
[2019-12-04 16:15] LABS: SARS-CoV-2 MS2 Positive; SARS-CoV-2 N Gene Negative; SARS-CoV-2 S Gene Negative; SARS-CoV-2 by NAA Not Detected (NotDetected); SARS-CoV-2 orf1ab Negative
== END 2019-12-04 07:50 | disposition home or self-care (01) ==
LOC: LABBT 07:49
PROVIDERS: ATTEND Neurological Surgery
DX: Z01.812 Encounter for preprocedural laboratory examination (principal); Z20.828 Contact with and (suspected) exposure to other viral communicable diseases; M48.061 Spinal stenosis, lumbar region without neurogenic claudication; M71.30 Other bursal cyst, unspecified site
CPT/HCPCS: 80048; 85027; 85610; 85730; U0003; 87635

== ENCOUNTER 2019-12-04 08:45 | Inpatient (IN) | payer MEDICARE, BC ==
[2019-12-06 11:21] VITALS: BMI 33.5
--- NOTE | 2019-12-06 15:26 | HP ---
REASON FOR ADMISSION: Surgery on 12/07/2019, case #[id number]. HISTORY OF PRESENT ILLNESS: Mr. Arteaga is a 69-year-old male with a chief complaint of lower back and leg pain since December. The pain radiates into his bilateral (L>R) gluteal muscles, hamstrings, and posterior calves. He could walk about a quarter of a mile before he has to sit or bend forward to alleviate the pain. He has had lumbar spinal epidural injections with temporary relief. Physical therapy helped only a little bit. He denies any gait, bladder or bowel dysfunction. REVIEW OF SYSTEMS: CONSTITUTIONAL: Denies fever or chills. ENT: Denies change in vision or hearing. CARDIAC: Denies chest pain, shortness of breath, or diaphoresis. PULMONARY: Denies shortness of breath, cough, or hemoptysis. GI: Denies fecal incontinence, abdominal pain, nausea, vomiting, diarrhea, change in stool formation and consistency. : Denies urinary incontinence, trouble with urination, frequency of urination, bloody urine. SKIN: Denies skin rash, bruising, bleeding, skin masses. MUSCULOSKELETAL: As per history of present illness. NEUROLOGIC: As per history of present illness. PSYCHOLOGIC: Denies anxiety, depression, or behavior changes. PAST MEDICAL HISTORY: Type 2 diabetes, hypertension, CAD, high cholesterol, and arthritis. 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 FAMILY HISTORY: Father, , diagnosed with cancer. Mother, , diagnosed with myocardial infarction ([place]). Has 4 brothers, healthy. 1 son, 2 daughters, healthy. SOCIAL HISTORY: Former smoker. Denies illicit drugs or alcohol use. MEDICATIONS: 1. Aspirin 325 mg. 2. Krill oil 1000 mg. 3. Ramipril 10 mg. 4. Metoprolol 100 mg. 5. Amiodarone 200 mg. 6. Metformin 500 mg. 7. Crestor 20 mg. 8. Januvia 100 mg. 9. Vicodin 10/325 mg. ALLERGIES: NO KNOWN DRUG ALLERGIES. PHYSICAL EXAMINATION: VITAL SIGNS: Weight 224 pounds, height 69 inches, and BMI is 33.08. HEENT: Pupils are equal. Extraocular movements are intact. NECK: Soft, supple. No masses are noted. Range of motion is intact and is nonpainful. NEUROLOGIC: Awake, alert, and oriented x3. Memory, attention, fund of knowledge are normal. Cranial nerves, grossly intact. Gait and station are normal. Motor exam; he has good strength in his iliopsoas, quadriceps, hamstrings, anterior tib, EHL, gastrocnemius, and toe flexors. Sensory exam; stocking distribution numbness in feet. IMAGING STUDIES: L-spine MRI, stenosis L3-L4, L4-L5. Synovial cyst at L4-L5. L-spine x-ray, flexion-extension stable. ASSESSMENT: 1. Radiculopathy of the lumbar region. 2. Spinal stenosis of the lumbar region without neurogenic claudication. 3. Lumbar stenosis with neurogenic claudication. PLAN: 1. Laminectomy L3 through L5 with cystectomy at L4-L5. 2. Preop labs; CBC, PT, PTT, COVID-19. 3. Clearance for anesthesia. INFORMED CONSENT: We discussed the indications, risks, benefits, alternatives, and expected results from surgery. The risks discussed included, but were not limited to, bleeding, infection, CSF leak, nerve damage, weakness, incontinence, cauda equina injury, arachnoiditis, paralysis, ventilator dependency, wheelchair dependency, loss of vision, cardiopulmonary complications of anesthesia, or . Long-term complications discussed included, but were not limited to spinal instability and future surgery. He understands the risks and is willing to proceed. Job ID: [id number] [facility]
[2019-12-07] MEDS ORDERED: Bupivacaine HCl 0.5%/Epinephrine 1:200,000/PF 30 ml Vial ONE (11:21)
[2019-12-07] MEDS ORDERED: Thrombin 5000 UNITS/5 ML VIAL ONE (11:21)
[2019-12-07] MEDS ORDERED: Fentanyl 100 MCG/2 ML VIAL ONE (11:23)
[2019-12-07] MEDS ORDERED: HYDROmorphone 0.5 MG/0.5 ML SYRINGE ONE (11:23)
[2019-12-07] MEDS ORDERED: Lidocaine 1% PF 5 ML VIAL ONE (12:56)
[2019-12-07] MEDS ORDERED: Glycopyrrolate 0.2 MG/ML 5 ML SYRINGE ONE (12:56)
[2019-12-07] MEDS ORDERED: PHENYLEPHRINE-NS 100 MCG/ML 10 ML SYRINGE ONE (12:56)
[2019-12-07] MEDS ORDERED: EPHEDRINE 25 MG/5 ML SYRINGE ONE (12:56)
[2019-12-07] MEDS ORDERED: Rocuronium Bromide 10 MG/ML (10ML VIAL) ONE (12:56)
[2019-12-07] MEDS ORDERED: Ondansetron PF 4 MG/2 ML Vial ONE ×2 (12:56→16:12)
[2019-12-07] MEDS ORDERED: PROPOFOL 200 MG/20 ML VIAL ONE (12:56)
[2019-12-07] MEDS ORDERED: Tamsulosin HCl 0.4 MG CAP ONE (15:37)
[2019-12-07] MEDS ORDERED: diphenhydrAMINE 25 MG CAP PO PRN (16:29)
[2019-12-07] MEDS ORDERED: Tamsulosin HCl 0.4 MG CAP PO PRN (16:29)
[2019-12-07] MEDS ORDERED: traMADol HCl 50 MG TAB PO PRN (16:29)
[2019-12-07] MEDS ORDERED: Acetaminophen 325 MG TAB PO PRN (16:29)
[2019-12-07] MEDS ORDERED: Mag-Al 1200 mg/1200 mg/30 ML UDCUP PO PRN (16:29)
[2019-12-07] MEDS ORDERED: Promethazine HCl 25 MG/ML VIAL IM PRN (16:29)
[2019-12-07] MEDS ORDERED: Scopolamine 1.5 mg/72 hour Patch TD PRN (16:29)
[2019-12-07] MEDS ORDERED: Promethazine 25 MG TAB PO PRN (16:29)
[2019-12-07] MEDS ORDERED: Milk Of Magnesia 30 ML UDCUP PO PRN (16:29)
[2019-12-07] MEDS ORDERED: Sodium Chloride 0.9% 1,000 ML IV SCH (16:30)
[2019-12-07] MEDS ORDERED: Morphine 2 MG/ML VIAL ONE (16:33)
[2019-12-07] MEDS ORDERED: Furosemide 40 MG TAB PO PRN (16:37)
[2019-12-07] MEDS: CEFAZOLIN 2 GM in Premix Bag 1 BAG IVPB SCH (20:21)
[2019-12-07] MEDS: Morphine 2 MG/ML VIAL SLOW IVP PRN (20:21)
[2019-12-07] MEDS: Ramipril 5 MG CAP PO SCH (20:21)
[2019-12-07] MEDS: tiZANidine HCl 4 MG TAB PO PRN (20:37)
[2019-12-07] MEDS ORDERED: Rosuvastatin 20 MG TAB PO SCH (21:00)
[2019-12-07] MEDS ORDERED: Gabapentin 300 MG CAP PO SCH (21:00)
[2019-12-07] MEDS ORDERED: Labetalol HCl 100 MG/20 ML VIAL SLOW IVP PRN (21:27)
--- NOTE | 2019-12-07 21:39 | OP ---
DATE OF PROCEDURE: 12/07/2019 EVENT DECORATOR: Herrera Urbina PA-C PREOPERATIVE INDICATION: Treat pain and prevent neurological deterioration. PREOPERATIVE DIAGNOSES: Lumbar stenosis with neurogenic claudication at L3-L4 and L4-L5, foraminal stenosis L3-L4 and L4-L5. POSTOPERATIVE DIAGNOSES: Lumbar stenosis with neurogenic claudication at L3-L4 and L4-L5, foraminal stenosis L3-L4 and L4-L5. PROCEDURES PERFORMED: 1. Decompressive laminectomy with medial facetectomy and foraminotomy at L3-L4 and L4-L5. 2. Resection of synovial cyst, L4-L5. 3. Operating microscope. PREOPERATIVE MEDICATIONS: Ancef 2 g IV. DRAIN NUMBER: Zero. DRAIN TYPE: None. DESCRIPTION OF PROCEDURE: The patient was brought to the operating room. General endotracheal anesthesia was induced. The patient was positioned prone on the operating table with the chest and hips supported by gel-filled chest rolls. A lateral fluoro radiograph was used to plan our incision. The lumbar skin was sterilely prepped and draped. We made a midline incision with a 10-blade knife and controlled bleeding with bipolar and monopolar cautery. We used monopolar cautery to dissect through subcutaneous tissues to the thoracodorsal fascia. We incised that fascia in the midline and reflected the paraspinal muscles off the spinous process and lamina of L3, L4, and L5. A self-retaining retractor was placed, and a lateral fluoro radiograph confirmed the levels upon which we were operating. We then removed the spinous processes of L3, L4, and the top of L5 with Adson rongeurs. Kerrison rongeurs were used to fashion a laminectomy down the midline. The operative microscope was brought into the field. Under microscopic magnification using microsurgical techniques, we removed the medial facet joints at L3-L4 and L4-L5. In the L4-L5 medial facetectomy especially on the left side, we removed synovial tissue from the facet joint and synovial cyst over the thecal sac. This was removed carefully under the operating microscope in a piecemeal fashion until the dura was well decompressed. We ensured the lateral recesses were well decompressed by palpating the medial pedicles and passing a ball probe through the lateral recesses. We then turned our attention to foraminotomies. With straight and curved Kerrisons, we performed foraminotomies of the exiting L3, L4, and L5 nerve roots until a Lara ball probe could leave the spine without compression. We irrigated with bacitracin irrigation. We waxed the bone edges. We infused local anesthetic in the paraspinal muscles. We treated the wound with vancomycin powder, and we closed in anatomical layers. We applied a sterile dressing. This was a clean case, no contamination. Job ID: [id number]
[2019-12-08] MEDS: Morphine 2 MG/ML VIAL SLOW IVP PRN ×2 (01:17→09:29)
[2019-12-08] MEDS: CEFAZOLIN 2 GM in Premix Bag 1 BAG IVPB SCH (03:00)
[2019-12-08] MEDS: tiZANidine HCl 4 MG TAB PO PRN (03:00)
--- NOTE | 2019-12-08 07:04 | PRG ---
DATE OF SERVICE: 12/08/2019 I saw Clyde Arteaga this morning. He is postop day #1 from a lumbar laminectomy. He had some paraspinal muscle spasm yesterday, but that seems to have resolved. He ambulated to the bathroom, but did not get in the hallways. Overnight, I do not see any fevers recorded among the electronic vital signs. Blood pressures at one time were quite high in the 190s, but this morning in the high 150s. He has very good strength in the lower extremities and good sensation. Our plan today is to mobilize. Once he is safe for activities of daily living, he can be discharged. Job ID: [id number] [facility]
[2019-12-08 07:57] VITALS: TEMP 98.1
[2019-12-08] MEDS ORDERED: metFORMIN 500 MG TAB PO SCH (08:00)
[2019-12-08] MEDS ORDERED: glipiZIDE 10 MG TAB PO SCH (09:00)
[2019-12-08] MEDS: Ramipril 5 MG CAP PO SCH (09:30)
[2019-12-08 09:31] VITALS: BP 196/96
== END 2019-12-08 11:51 | disposition home or self-care (01) | DRG 520 ==
LOC: SURG A 12-07 10:27 → SJJU 12-07 18:00
PROVIDERS: ADMIT Neurological Surgery; ATTEND Neurological Surgery
PROC: 01NB0ZZ Release Lumbar Nerve, Open Approach (ICD-10-PCS; principal; 2019-12-07)
PROC: 00NY0ZZ Release Lumbar Spinal Cord, Open Approach (ICD-10-PCS; 2019-12-07)
DX: M48.062 Spinal stenosis, lumbar region with neurogenic claudication (principal); E11.9 Type 2 diabetes mellitus without complications; I10 Essential (primary) hypertension; M54.16 Radiculopathy, lumbar region; I25.10 Atherosclerotic heart disease of native coronary artery without angina pectoris; E78.00 Pure hypercholesterolemia, unspecified; M19.90 Unspecified osteoarthritis, unspecified site; Z87.891 Personal history of nicotine dependence; Z79.82 Long term (current) use of aspirin; Z95.1 Presence of aortocoronary bypass graft; Z79.899 Other long term (current) drug therapy; M62.830 Muscle spasm of back; M71.38 Other bursal cyst, other site
CPT/HCPCS: 36416; 76000; 80048; 85027; 85610; 85730; 87635; J0690; J1170; J2270; J2405; J2704; J3010; J3370; J3490; U0003

== ENCOUNTER 2021-12-25 10:35 | Inpatient (IN) | payer MEDICARE, BC ==
[2021-12-25] MEDS ORDERED: Azithromycin 500 MG VIAL ONE (11:10)
[2021-12-25] MEDS ORDERED: cefTRIAXone\\ROCEPHIN 2 GM VIAL ONE (11:10)
[2021-12-25] MEDS ORDERED: Acetaminophen 500 MG TAB ONE (11:11)
[2021-12-25 11:14] LABS: #Lymphocytes 0.5 thou/uL (1.20-3.40); #Monocytes 0.6 thou/uL (0.11-0.59); #Neutrophils 8.3 thou/uL (1.40-6.50); %Eosinophils 0.3 % (0.0-10.0); %Lymphocytes 5.1 % (21.0-51.0); %Monocytes 6.4 % (0.0-10.0); %Neutrophils 88.1 % (42.0-75.0); Hemoglobin 13.1 g/dL (14.0-18.0); Mean Corpuscular HGB CONC 34.8 g/dL (32.0-36.0); Mean Corpuscular Hemoglobin 30.9 pg (27.0-31.0); Mean Corpuscular Volume 88.9 fl (78.0-98.0); Mean Platelet Volume 8.3 fL (7.4-10.4); Platelet Count 180 thou/uL (130-400); RBC Distribution Width 11.8 % (11.5-14.5); Red Blood Cell (RBC) Count 4.24 mill/uL (4.70-6.10); White Blood Cell (WBC) Count 9.4 thou/uL (4.8-10.8)
[2021-12-25 11:33] LABS: ALT (SGPT) 56 U/L (8-55); AST (SGOT) 44 U/L (5-34); Albumin 3.7 g/dL (3.4-4.8); Alkaline Phosphatase 68 U/L (40-110); Anion Gap 14 mmol/L (10-20); BUN (Urea Nitrogen) 10 mg/dL (8.4-25.7); Bilirubin, Total 0.4 mg/dL (0.2-1.2); Calc. Creatinine Clearance 0 mL/min (70-130); Calcium 8.7 mg/dL (7.8-10.44); Carbon Dioxide 26 mmol/L (23-31); Chloride 96 mmol/L (98-107); Estimated GFR 93; Globulin 2.6 g/dL (2.4-3.5); Glucose 248 mg/dL (83-110); Potassium 3.8 mmol/L (3.5-5.1); Protein, Total 6.3 g/dL (5.8-8.1); Sodium 132 mmol/L (136-145)
[2021-12-25] MEDS ORDERED: Iopamidol-370 76% 500 ML 1 ML ONE (12:32)
[2021-12-25 12:48] LABS: SARS-CoV-2 NAA Rapid Test Not Detected (NotDetected)
[2021-12-25 13:25] LABS: Bacteria/HPF None Seen HPF (None Seen); Bilirubin Negative (Negative); Blood, Urine 1+ (Negative); Clarity Clear (Clear); Glucose, Urine (Dipstick) 500 mg/dL (Negative); Ketone, Urine Trace mg/dL (Negative); Leukocyte Negative Leu/uL (Negative); Nitrite Negative (Negative); Protein, Urine (Dipstick) 200 mg/dL (Neg-Trace); RBC/HPF 0-3 HPF (0-3); Specific Gravity, Urine 1.029 (1.002-1.036); Squamous Epithelial None Seen HPF (0-3); Urobilinogen Normal mg/dL (Less than 2); WBC/HPF 0-3 HPF (0-3)
[2021-12-25 14:21] VITALS: BMI 34.0
[2021-12-25] MEDS ORDERED: Dextrose 5% in Water 1,000 ML IV PRN (14:21)
[2021-12-25] MEDS ORDERED: Dextrose 50% Abboject 50 ML SYRINGE SLOW IVP PRN (14:21)
[2021-12-25] MEDS ORDERED: HumaLOG 300 UNITS/3 ML VIAL SC PRN ×2 (14:21)
[2021-12-25] MEDS ORDERED: Acetaminophen 325 MG TAB PO PRN (14:22)
[2021-12-25] MEDS ORDERED: Ondansetron ODT 4 MG TAB PO PRN (14:22)
[2021-12-25] MEDS ORDERED: Benzonatate 100 MG CAP PO PRN (14:24)
[2021-12-25] MEDS ORDERED: FLU VACC QS2022-23(65YR UP)/PF 240 MCG/0.7 ML SYRINGE IM ONE (14:30)
[2021-12-25] MEDS: metFORMIN 500 MG TAB PO SCH (17:35)
[2021-12-25] MEDS: methylPREDNISolone Sod Succ 40 MG VIAL IVP SCH ×2 (17:36→23:08)
[2021-12-25] MEDS: Ramipril 5 MG CAP PO SCH (19:58)
[2021-12-25] MEDS ORDERED: Gabapentin 300 MG CAP PO SCH (21:00)
[2021-12-25] MEDS ORDERED: Rosuvastatin 20 MG TAB PO SCH (21:00)
[2021-12-25] MEDS ORDERED: Docusate 100 MG CAP PO PRN (22:15)
[2021-12-26] MEDS: methylPREDNISolone Sod Succ 40 MG VIAL IVP SCH (05:52)
[2021-12-26 06:19] LABS: #Lymphocytes 0.6 thou/uL (1.20-3.40); #Monocytes 0.3 thou/uL (0.11-0.59); #Neutrophils 6.8 thou/uL (1.40-6.50); %Basophils 0.3 % (0.0-1.0); %Eosinophils 0.1 % (0.0-10.0); %Lymphocytes 7.2 % (21.0-51.0); %Monocytes 3.5 % (0.0-10.0); Hemoglobin 11.9 g/dL (14.0-18.0); Mean Corpuscular HGB CONC 33.3 g/dL (32.0-36.0); Mean Corpuscular Hemoglobin 30.1 pg (27.0-31.0); Mean Corpuscular Volume 90.2 fl (78.0-98.0); Mean Platelet Volume 8.3 fL (7.4-10.4); Platelet Count 191 thou/uL (130-400); RBC Distribution Width 11.9 % (11.5-14.5); Red Blood Cell (RBC) Count 3.96 mill/uL (4.70-6.10); White Blood Cell (WBC) Count 7.6 thou/uL (4.8-10.8)
[2021-12-26 06:49] LABS: ALT (SGPT) 53 U/L (8-55); AST (SGOT) 38 U/L (5-34); Albumin 3.4 g/dL (3.4-4.8); Alkaline Phosphatase 59 U/L (40-110); Anion Gap 10 mmol/L (10-20); BUN (Urea Nitrogen) 11 mg/dL (8.4-25.7); Bilirubin, Total 0.4 mg/dL (0.2-1.2); Calc. Creatinine Clearance 135 mL/min (70-130); Calcium 8.7 mg/dL (7.8-10.44); Carbon Dioxide 29 mmol/L (23-31); Chloride 99 mmol/L (98-107); Estimated GFR 97; Globulin 2.4 g/dL (2.4-3.5); Glucose 204 mg/dL (83-110); Potassium 4.1 mmol/L (3.5-5.1); Protein, Total 5.8 g/dL (5.8-8.1); Sodium 134 mmol/L (136-145)
[2021-12-26] MEDS ORDERED: glipiZIDE 10 MG TAB PO SCH (07:30)
[2021-12-26] MEDS: metFORMIN 500 MG TAB PO SCH (08:19)
[2021-12-26] MEDS: Ramipril 5 MG CAP PO SCH (08:21)
[2021-12-26] MEDS ORDERED: Aspirin 325 MG TAB PO SCH (09:00)
[2021-12-26] MEDS ORDERED: Alogliptin 25 MG TAB PO SCH (09:00)
[2021-12-26] MEDS ORDERED: Enoxaparin Sodium 40 MG/0.4 ML SYRINGE SC SCH (09:00)
[2021-12-26] MEDS ORDERED: Amlodipine 5 MG TAB PO SCH (09:00)
[2021-12-26] MEDS ORDERED: cefTRIAXone\\ROCEPHIN 1 GM in Sodium Chloride 0.9% 100 ML IVPB SCH ×2 (12:00→15:00)
[2021-12-26 12:18] VITALS: BP 189/81; TEMP 98.2
[2021-12-26] MEDS ORDERED: Azithromycin 500 MG in Sodium Chloride 0.9% 250 ML 250 ML IVPB SCH ×2 (13:00→14:30)
== END 2021-12-26 15:02 | disposition home or self-care (01) | DRG 871 ==
LOC: ERS 10:35 → T4-B 14:09
PROVIDERS: ADMIT Internal Medicine; ATTEND Internal Medicine
DX: A41.9 Sepsis, unspecified organism (principal); J18.9 Pneumonia, unspecified organism; J96.01 Acute respiratory failure with hypoxia; I50.32 Chronic diastolic (congestive) heart failure; E78.5 Hyperlipidemia, unspecified; E11.40 Type 2 diabetes mellitus with diabetic neuropathy, unspecified; Z20.822 Contact with and (suspected) exposure to COVID-19; K21.9 Gastro-esophageal reflux disease without esophagitis; I11.0 Hypertensive heart disease with heart failure; I25.10 Atherosclerotic heart disease of native coronary artery without angina pectoris; Z79.82 Long term (current) use of aspirin; Z79.899 Other long term (current) drug therapy; Z79.84 Long term (current) use of oral hypoglycemic drugs; Z95.1 Presence of aortocoronary bypass graft; Z98.890 Other specified postprocedural states; Z87.891 Personal history of nicotine dependence
CPT/HCPCS: 36415; 36416; 71045; 71275; 80053; 81003; 81015; 83605; 84484; 85025; 85379; 87040; 87324; 87449; 93005; 94640; J0456; J0696; J1650; J1815; J2920; J3490; J7050; J7620; Q9967

== ENCOUNTER 2022-03-19 00:19 | Inpatient (IN) | payer MEDICARE, BC ==
[2022-03-19 00:49] LABS: #Eosinphils 0.3 thou/uL (0.0-0.7); #Lymphocytes 2.4 thou/uL (1.20-3.40); #Monocytes 0.9 thou/uL (0.11-0.59); #Neutrophils 7.7 thou/uL (1.40-6.50); %Basophils 0.4 % (0.0-1.0); %Eosinophils 2.3 % (0.0-10.0); %Lymphocytes 21.3 % (21.0-51.0); %Monocytes 7.9 % (0.0-10.0); %Neutrophils 68.1 % (42.0-75.0); Hemoglobin 13.6 g/dL (14.0-18.0); Mean Corpuscular HGB CONC 33.6 g/dL (32.0-36.0); Mean Corpuscular Hemoglobin 29.7 pg (27.0-31.0); Mean Corpuscular Volume 88.2 fl (78.0-98.0); Mean Platelet Volume 9.1 fL (7.4-10.4); Platelet Count 213 10x3/uL (130-400); RBC Distribution Width 13.4 % (11.5-14.5); Red Blood Cell (RBC) Count 4.58 mill/uL (4.70-6.10); White Blood Cell (WBC) Count 11.3 10x3/uL (4.8-10.8)
[2022-03-19 01:09] LABS: ALT (SGPT) 27 U/L (8-55); AST (SGOT) 20 U/L (5-34); Albumin 4.2 g/dL (3.4-4.8); Alkaline Phosphatase 79 U/L (40-110); Anion Gap 15 mmol/L (10-20); BUN (Urea Nitrogen) 11 mg/dL (8.4-25.7); Bilirubin, Total 0.4 mg/dL (0.2-1.2); Calc. Creatinine Clearance 0 mL/min (70-130); Calcium 9.4 mg/dL (7.8-10.44); Carbon Dioxide 24 mmol/L (23-31); Chloride 104 mmol/L (98-107); Estimated GFR 90; Globulin 2.4 g/dL (2.4-3.5); Glucose 129 mg/dL (83-110); Potassium 3.8 mmol/L (3.5-5.1); Protein, Total 6.6 g/dL (5.8-8.1); Sodium 139 mmol/L (136-145)
[2022-03-19] MEDS ORDERED: Nitroglycerin 2% Ointment 1 INCH/1 GM Packet ONE (01:35)
[2022-03-19] MEDS ORDERED: Furosemide 40 MG/4 ML VIAL ONE ×3 (01:35→10:49)
[2022-03-19 01:36] LABS: CKMB 3.6 ng/mL (0-6.6)
[2022-03-19 01:45] LABS: INR-International Normal Ratio 0.9; Prothrombin Time 12.9 sec (12.0-14.7)
[2022-03-19 01:46] LABS: PTT 28.9 sec (22.9-36.1)
[2022-03-19] MEDS ORDERED: Dextrose 5% in Water 1,000 ML IV PRN (01:51)
[2022-03-19] MEDS ORDERED: HumaLOG 300 UNITS/3 ML VIAL SC PRN (01:51)
[2022-03-19] MEDS ORDERED: Dextrose 50% Abboject 50 ML SYRINGE SLOW IVP PRN (01:51)
[2022-03-19 05:05] LABS: #Basophils 0.1 thou/uL (0.0-0.2); #Eosinphils 0.2 thou/uL (0.0-0.7); #Lymphocytes 2.1 thou/uL (1.20-3.40); #Monocytes 0.8 thou/uL (0.11-0.59); %Basophils 0.4 % (0.0-1.0); %Eosinophils 1.6 % (0.0-10.0); %Lymphocytes 17.2 % (21.0-51.0); %Monocytes 6.8 % (0.0-10.0); Mean Corpuscular HGB CONC 33.6 g/dL (32.0-36.0); Mean Corpuscular Hemoglobin 29.3 pg (27.0-31.0); Mean Corpuscular Volume 87.1 fl (78.0-98.0); Mean Platelet Volume 9.3 fL (7.4-10.4); Platelet Count 197 10x3/uL (130-400); RBC Distribution Width 13.4 % (11.5-14.5); Red Blood Cell (RBC) Count 4.43 mill/uL (4.70-6.10); White Blood Cell (WBC) Count 12.2 10x3/uL (4.8-10.8)
[2022-03-19] MEDS: Acetaminophen 325 MG TAB PO PRN (05:15)
[2022-03-19] MEDS ORDERED: Acetaminophen 325 MG TAB ONE (05:16)
[2022-03-19 05:29] LABS: Anion Gap 15 mmol/L (10-20); BUN (Urea Nitrogen) 10 mg/dL (8.4-25.7); Calc. Creatinine Clearance 0 mL/min (70-130); Calcium 9.4 mg/dL (7.8-10.44); Carbon Dioxide 28 mmol/L (23-31); Chloride 101 mmol/L (98-107); Estimated GFR 94; Glucose 107 mg/dL (83-110); Potassium 3.6 mmol/L (3.5-5.1); Sodium 140 mmol/L (136-145)
[2022-03-19 05:47] LABS: Troponin I 0.584 ng/mL (< 0.028)
[2022-03-19 08:50] LABS: Magnesium 1.4 mg/dL (1.6-2.6)
[2022-03-19] MEDS ORDERED: Ramipril 5 MG CAP PO SCH (09:00)
[2022-03-19] MEDS: Amlodipine 5 MG TAB PO SCH (09:07)
[2022-03-19] MEDS: Icosapent Ethyl 1 GM CAPSULE PO SCH (09:07)
[2022-03-19] MEDS: CO Q-10 CAPSULE 100 MG PO SCH (09:07)
[2022-03-19] MEDS: Alogliptin 25 MG TAB PO SCH (09:08)
[2022-03-19] MEDS ORDERED: Aspirin Chewable 81 MG TAB ONE (09:09)
[2022-03-19] MEDS ORDERED: Amlodipine 5 MG TAB ONE (09:09)
[2022-03-19] MEDS: Aspirin Chewable 81 MG TAB PO SCH (09:11)
[2022-03-19 09:20] LABS: Troponin I 0.584 ng/mL (< 0.028)
[2022-03-19] MEDS ORDERED: Potassium Chloride 20 MEQ TAB PO SCH (09:30)
[2022-03-19] MEDS ORDERED: Magnesium 2 GM/50 ML(in water) 2 GM in Premix Bag 1 BAG IVPB SCH (09:30)
[2022-03-19] MEDS ORDERED: Furosemide 40 MG/4 ML VIAL SLOW IVP SCH ×2 (09:56→10:15)
[2022-03-19] MEDS ORDERED: Magnesium 2 GM/50 ML BAG (IN WATER) ONE (10:48)
[2022-03-19] MEDS ORDERED: Potassium Chloride 20 MEQ TAB ONE (10:48)
[2022-03-19] MEDS ORDERED: Communication Order-Pharmacy FS SCH (13:30)
[2022-03-19 15:10] LABS: SARS-CoV-2 NAA Rapid Test Not Detected (NotDetected)
[2022-03-19] MEDS ORDERED: Communication Order-Pharmacy FS PRN (17:15)
[2022-03-19 18:02] VITALS: BMI 32.4
[2022-03-19] MEDS: Rosuvastatin 20 MG TAB PO SCH (21:14)
[2022-03-19] MEDS: Gabapentin 300 MG CAP PO SCH (21:14)
[2022-03-20] MEDS: Amlodipine 5 MG TAB PO SCH (05:13)
[2022-03-20] MEDS: Icosapent Ethyl 1 GM CAPSULE PO SCH (05:14)
[2022-03-20] MEDS: Aspirin Chewable 81 MG TAB PO SCH (05:14)
[2022-03-20] MEDS: CO Q-10 CAPSULE 100 MG PO SCH (05:14)
[2022-03-20] MEDS: Alogliptin 25 MG TAB PO SCH (05:14)
[2022-03-20 05:30] LABS: Magnesium 1.7 mg/dL (1.6-2.6)
[2022-03-20] MEDS ORDERED: Lidocaine 1% (PF) 30 ML VIAL ONE (06:17)
[2022-03-20] MEDS ORDERED: Heparin 10,000 UNITS/ 10 ML VIAL ONE (06:17)
[2022-03-20] MEDS ORDERED: Nitroglycerin 100MG/250ML BOT 0 ML ONE (06:17)
[2022-03-20] MEDS ORDERED: FENTANYL 50 MCG/ML 1 ML VIAL ONE (07:30)
[2022-03-20] MEDS ORDERED: Midazolam HCl 2 mg/2 ml Vial ONE (07:30)
[2022-03-20] MEDS ORDERED: Furosemide 40 MG/4 ML VIAL SLOW IVP SCH (09:00)
[2022-03-20] MEDS ORDERED: Empagliflozin 10 MG TAB PO SCH (09:00)
[2022-03-20] MEDS: Acetaminophen 325 MG TAB PO PRN (09:05)
[2022-03-20 12:02] LABS: Anion Gap 16 mmol/L (10-20); BUN (Urea Nitrogen) 9 mg/dL (8.4-25.7); Calc. Creatinine Clearance 112 mL/min (70-130); Calcium 9.3 mg/dL (7.8-10.44); Carbon Dioxide 27 mmol/L (23-31); Chloride 99 mmol/L (98-107); Estimated GFR 93; Glucose 116 mg/dL (83-110); Potassium 4.1 mmol/L (3.5-5.1); Sodium 138 mmol/L (136-145)
[2022-03-20] MEDS: Spironolactone 25 MG TAB PO SCH (12:41)
[2022-03-20] MEDS ORDERED: Iopamidol 370 76% 100 ML VIAL ONE (15:35)
[2022-03-20] MEDS: Rosuvastatin 20 MG TAB PO SCH (21:39)
[2022-03-20] MEDS: Gabapentin 300 MG CAP PO SCH (21:39)
[2022-03-20] MEDS: Sacubitril 49 MG/Valsartan 51 MG TABLET PO SCH (21:39)
[2022-03-21] MEDS ORDERED: cloNIDine 0.1 MG TAB PO SCH (04:00)
[2022-03-21 05:30] LABS: Anion Gap 13 mmol/L (10-20); BUN (Urea Nitrogen) 12 mg/dL (8.4-25.7); Calc. Creatinine Clearance 109 mL/min (70-130); Carbon Dioxide 27 mmol/L (23-31); Chloride 101 mmol/L (98-107); Estimated GFR 92; Glucose 167 mg/dL (83-110); Magnesium 1.7 mg/dL (1.6-2.6); Potassium 3.6 mmol/L (3.5-5.1); Sodium 137 mmol/L (136-145)
[2022-03-21] MEDS: Acetaminophen 325 MG TAB PO PRN (05:39)
[2022-03-21] MEDS: Spironolactone 25 MG TAB PO SCH (08:49)
[2022-03-21] MEDS: Icosapent Ethyl 1 GM CAPSULE PO SCH (08:49)
[2022-03-21] MEDS: Alogliptin 25 MG TAB PO SCH (08:50)
[2022-03-21] MEDS: Aspirin Chewable 81 MG TAB PO SCH (08:50)
[2022-03-21] MEDS: Sacubitril 49 MG/Valsartan 51 MG TABLET PO SCH (08:50)
[2022-03-21] MEDS: CO Q-10 CAPSULE 100 MG PO SCH (08:50)
[2022-03-21] MEDS ORDERED: Furosemide 20 MG TAB PO SCH (09:00)
[2022-03-21] MEDS ORDERED: Magnesium 2 GM/50 ML(in water) 2 GM in Premix Bag 1 BAG IVPB SCH (10:00)
[2022-03-21] MEDS ORDERED: Amlodipine 5 MG TAB PO SCH (10:15)
[2022-03-21 12:24] VITALS: TEMP 97.9
[2022-03-21 12:33] VITALS: BP 178/84
[2022-03-22] MEDS ORDERED: Amlodipine 5 MG TAB PO SCH (09:00)
== END 2022-03-21 13:25 | disposition home or self-care (01) | DRG 280 ==
LOC: ERS 00:19 → ERHOLD 01:50 → 2SW 17:35
PROVIDERS: ADMIT Family Medicine; ATTEND Hospitalist
PROC: 4A023N7 Measurement of Cardiac Sampling and Pressure, Left Heart, Percutaneous Approach (ICD-10-PCS; principal; 2022-03-20)
PROC: B2111ZZ Fluoroscopy of Multiple Coronary Arteries using Low Osmolar Contrast (ICD-10-PCS; 2022-03-20)
PROC: B2131ZZ Fluoroscopy of Multiple Coronary Artery Bypass Grafts using Low Osmolar Contrast (ICD-10-PCS; 2022-03-20)
DX: I21.4 Non-ST elevation (NSTEMI) myocardial infarction (principal); I50.33 Acute on chronic diastolic (congestive) heart failure; I25.810 Atherosclerosis of coronary artery bypass graft(s) without angina pectoris; I42.9 Cardiomyopathy, unspecified; I11.0 Hypertensive heart disease with heart failure; E11.9 Type 2 diabetes mellitus without complications; K21.9 Gastro-esophageal reflux disease without esophagitis; I25.10 Atherosclerotic heart disease of native coronary artery without angina pectoris; Z20.822 Contact with and (suspected) exposure to COVID-19; E78.00 Pure hypercholesterolemia, unspecified; E78.5 Hyperlipidemia, unspecified; Z79.82 Long term (current) use of aspirin; I25.2 Old myocardial infarction; Z79.899 Other long term (current) drug therapy; Z79.84 Long term (current) use of oral hypoglycemic drugs
CPT/HCPCS: 36415; 36416; 71045; 80048; 80053; 82553; 83735; 83880; 84484; 85025; 85610; 85730; 93005; 93306; 93455; 93798; 96372; 96374; 99152; 99153; 99156; 99157; C1769; J1644; J1650; J1940; J2001; J2250; J3010; J3475; Q9967; U0002

== ENCOUNTER 2022-09-01 07:33 | Day surgery (SDC) | payer MEDICARE, BC ==
[2022-08-31 11:43] VITALS: BMI 31.7
[2022-09-01] MEDS ORDERED: Ketamine 50 MG/ML (10ML VIAL) ONE (10:09)
[2022-09-01] MEDS ORDERED: Vasopressin 20 UNITS/ML VIAL ONE (10:10)
[2022-09-01] MEDS ORDERED: Lidocaine 1% PF 5 ML VIAL ONE (10:28)
[2022-09-01] MEDS ORDERED: PROPOFOL 200 MG/20 ML VIAL ONE (10:28)
== END 2022-09-01 11:57 | disposition home or self-care (01) ==
LOC: SDC 07:33
PROVIDERS: ATTEND Internal Medicine
PROC: 0DBK8ZZ Excision of Ascending Colon, Via Natural or Artificial Opening Endoscopic (ICD-10-PCS; principal; 2022-09-01)
PROC: 0DBL8ZZ Excision of Transverse Colon, Via Natural or Artificial Opening Endoscopic (ICD-10-PCS; 2022-09-01)
PROC: 0DBM8ZZ Excision of Descending Colon, Via Natural or Artificial Opening Endoscopic (ICD-10-PCS; 2022-09-01)
DX: Z12.11 Encounter for screening for malignant neoplasm of colon (principal); D12.2 Benign neoplasm of ascending colon; D12.3 Benign neoplasm of transverse colon; D12.4 Benign neoplasm of descending colon; K64.8 Other hemorrhoids; Z86.010 Personal history of colon polyps
CPT/HCPCS: 88305; J2704

== ENCOUNTER 2023-12-27 10:23 | Inpatient (IN) | payer MEDICARE, BC ==
[2023-12-27] MEDS ORDERED: Aspirin Chewable 81 MG TAB ONE (11:25)
[2023-12-27 11:31] LABS: #Basophils 0.05 10x3/uL (0.0-0.2); %Basophils 0.4 % (0.0-1.0); %Eosinophils 1.2 % (0.0-10.0); %Lymphocytes 9.8 % (21.0-51.0); %Monocytes 4.5 % (0.0-10.0); %Neutrophils 83.7 % (42.0-75.0); Hematocrit 43.1 % (42.0-52.0); Mean Corpuscular HGB CONC 34.8 g/dL (32.0-36.0); Mean Corpuscular Hemoglobin 29.2 pg (27.0-31.0); Mean Corpuscular Volume 83.9 fL (78.0-98.0); Mean Platelet Volume 11.4 fL (7.4-10.4); Platelet Count 231 10x3/uL (130-400); RBC Distribution Width 13.7 % (11.5-14.5); Red Blood Cell (RBC) Count 5.14 mill/uL (4.70-6.10)
[2023-12-27 11:48] LABS: ALT (SGPT) 38 U/L (8-55); AST (SGOT) 28 U/L (5-34); Albumin 4.1 g/dL (3.4-4.8); Alkaline Phosphatase 89 U/L (40-110); Anion Gap 16 mmol/L (10-20); BUN (Urea Nitrogen) 13 mg/dL (8.4-25.7); Bilirubin, Total 0.3 mg/dL (0.2-1.2); Calc. Creatinine Clearance 0 mL/min (70-130); Calcium 9.9 mg/dL (7.8-10.44); Carbon Dioxide 24 mmol/L (23-31); Chloride 103 mmol/L (98-107); Estimated GFR 80; Glucose 167 mg/dL (83-110); Magnesium 1.8 mg/dL (1.6-2.6); Potassium 4.1 mmol/L (3.5-5.1); Protein, Total 7.1 g/dL (5.8-8.1); Sodium 139 mmol/L (136-145)
[2023-12-27 11:54] LABS: Troponin I 0.055 ng/mL (< 0.028)
[2023-12-27] MEDS ORDERED: Calcium Carbonate 500 MG ChewTAB PO PRN (14:17)
[2023-12-27] MEDS ORDERED: Ondansetron ODT 4 MG TAB PO PRN (14:17)
[2023-12-27] MEDS ORDERED: Dextrose 5% in Water 1,000 ML IV PRN (14:17)
[2023-12-27] MEDS ORDERED: Senokot S 8.6-50 MG TAB PO PRN (14:17)
[2023-12-27] MEDS ORDERED: Glucagon 1 MG/ML KIT IM PRN (14:17)
[2023-12-27] MEDS ORDERED: Acetaminophen 650 MG Suppository PR PRN (14:17)
[2023-12-27] MEDS ORDERED: Dextrose 50% Abboject 50 ML SYRINGE SLOW IVP PRN (14:17)
[2023-12-27] MEDS ORDERED: Ondansetron PF 4 MG/2 ML Vial IVP PRN (14:17)
[2023-12-27] MEDS ORDERED: Insulin Lispro 100 UNIT/ML 10 ML VIAL SC PRN ×2 (14:17)
[2023-12-27] MEDS ORDERED: Morphine 4 MG/ML VIAL ONE (14:54)
[2023-12-27 15:56] LABS: Troponin I 1.017 ng/mL (< 0.028)
[2023-12-27] MEDS ORDERED: Morphine 2 MG/ML VIAL ONE (17:23)
[2023-12-27] MEDS: Morphine 2 MG/ML VIAL SLOW IVP PRN (17:32)
[2023-12-27 18:19] VITALS: BMI 33.1
[2023-12-27 18:23] LABS: Troponin I 2.694 ng/mL (< 0.028)
[2023-12-27] MEDS: Nitroglycerin 0.4 MG TAB (25 Tab Bottle) SL PRN (18:36)
[2023-12-27] MEDS: Nitroglycerin 2% Ointment 1 INCH/1 GM Packet TOP SCH (20:30)
[2023-12-27] MEDS: Sacubitril 49 MG/Valsartan 51 MG TABLET PO SCH (20:30)
[2023-12-27] MEDS: Heparin 10,000 UNITS/ 10 ML VIAL SLOW IVP SCH (20:31)
[2023-12-28 02:12] LABS: #Basophils 0.05 10x3/uL (0.0-0.2); %Basophils 0.3 % (0.0-1.0); %Eosinophils 0.8 % (0.0-10.0); %Lymphocytes 11.6 % (21.0-51.0); %Monocytes 6.5 % (0.0-10.0); %Neutrophils 80.4 % (42.0-75.0); Hematocrit 40.1 % (42.0-52.0); Hemoglobin 13.6 g/dL (14.0-18.0); Mean Corpuscular HGB CONC 33.9 g/dL (32.0-36.0); Mean Corpuscular Hemoglobin 29.2 pg (27.0-31.0); Mean Corpuscular Volume 86.1 fL (78.0-98.0); Mean Platelet Volume 10.4 fL (7.4-10.4); Platelet Count 206 10x3/uL (130-400); RBC Distribution Width 13.9 % (11.5-14.5); Red Blood Cell (RBC) Count 4.66 mill/uL (4.70-6.10)
[2023-12-28 04:41] LABS: Anion Gap 18 mmol/L (10-20); BUN (Urea Nitrogen) 12 mg/dL (8.4-25.7); Calc. Creatinine Clearance 110 mL/min (70-130); Carbon Dioxide 19 mmol/L (23-31); Cardiac Risk 3.3 (Less than 4.5); Chloride 103 mmol/L (98-107); Cholesterol 117 mg/dl (< 200 Desired); Estimated GFR 91; Glucose 135 mg/dL (83-110); HDL Cholesterol 36 mg/dL (>60 Neg Risk); LDL Cholesterol, Calculated 48 mg/dL; Potassium 3.8 mmol/L (3.5-5.1); Sodium 136 mmol/L (136-145); Triglycerides 164 mg/dL (Less than 150)
[2023-12-28] MEDS ORDERED: Isosorbide Mononitrate 60 MG ER.TAB PO SCH (09:00)
[2023-12-28] MEDS: Aspirin Chewable 81 MG TAB PO SCH (09:22)
[2023-12-28] MEDS: Dapagliflozin Propanediol 10 MG TAB PO SCH (09:23)
[2023-12-28] MEDS: Isosorbide Mononitrate 30 MG ER.TAB PO SCH (09:23)
[2023-12-28] MEDS: Acetaminophen 325 MG TAB PO PRN (10:38)
[2023-12-28] MEDS: Heparin 25,000 units/D5W 500 ML IV SCH (11:08)
[2023-12-28] MEDS ORDERED: CATH FS PRN (13:45)
[2023-12-28] MEDS: Rosuvastatin 20 MG TAB PO SCH (20:08)
[2023-12-29 05:24] LABS: #Basophils 0.03 10x3/uL (0.0-0.2); %Basophils 0.3 % (0.0-1.0); %Lymphocytes 13.4 % (21.0-51.0); %Monocytes 10.5 % (0.0-10.0); %Neutrophils 74.4 % (42.0-75.0); Anion Gap 14 mmol/L (10-20); BUN (Urea Nitrogen) 13 mg/dL (8.4-25.7); Calc. Creatinine Clearance 93 mL/min (70-130); Calcium 8.9 mg/dL (7.8-10.44); Carbon Dioxide 25 mmol/L (23-31); Chloride 102 mmol/L (98-107); Estimated GFR 79; Glucose 136 mg/dL (83-110); Hematocrit 38.5 % (42.0-52.0); Hemoglobin 12.8 g/dL (14.0-18.0); Mean Corpuscular HGB CONC 33.2 g/dL (32.0-36.0); Mean Corpuscular Hemoglobin 28.8 pg (27.0-31.0); Mean Corpuscular Volume 86.7 fL (78.0-98.0); Platelet Count 181 10x3/uL (130-400); Potassium 3.8 mmol/L (3.5-5.1); RBC Distribution Width 13.6 % (11.5-14.5); Red Blood Cell (RBC) Count 4.44 mill/uL (4.70-6.10); Sodium 137 mmol/L (136-145)
[2023-12-29] MEDS ORDERED: Heparin 10,000 UNITS/ 10 ML VIAL ONE (06:10)
[2023-12-29] MEDS ORDERED: Nitroglycerin 50 MG/250 ML BOT 0 ML ONE (06:10)
[2023-12-29] MEDS ORDERED: Midazolam HCl 2 mg/2 ml Vial ONE (06:10)
[2023-12-29] MEDS ORDERED: fentaNYL 50 mcg/mL 1 mL Vial ONE (06:10)
[2023-12-29] MEDS ORDERED: Acetaminophen/Codeine 30-300mg Tablet PO PRN (08:12)
[2023-12-29] MEDS ORDERED: Sodium Chloride 0.9% 200 ML IV PRN (08:12)
[2023-12-29] MEDS: Sodium Chloride 0.9% 500 ML IV SCH (09:30)
[2023-12-29] MEDS ORDERED: Iopamidol 370 76% 100 ML VIAL ONE (13:01)
[2023-12-30] MEDS: Clopidogrel Bisulfate 300 MG TAB PO SCH (10:13)
[2023-12-30] MEDS: Dapagliflozin Propanediol 10 MG TAB PO SCH (10:14)
[2023-12-30 12:22] VITALS: TEMP 97.8
[2023-12-30 12:24] VITALS: BP 143/67
[2023-12-31] MEDS ORDERED: Clopidogrel Bisulfate 75 MG TAB PO SCH (09:00)
== END 2023-12-30 14:47 | disposition home or self-care (01) | DRG 281 ==
LOC: ERS 10:23 → ERHOLD 13:15 → OBS 17:51 → OBSVTOIN 12-28 18:33
PROVIDERS: ADMIT Internal Medicine; ATTEND Family Medicine
PROC: 4A023N7 Measurement of Cardiac Sampling and Pressure, Left Heart, Percutaneous Approach (ICD-10-PCS; principal; 2023-12-29)
PROC: B2111ZZ Fluoroscopy of Multiple Coronary Arteries using Low Osmolar Contrast (ICD-10-PCS; 2023-12-29)
PROC: B2131ZZ Fluoroscopy of Multiple Coronary Artery Bypass Grafts using Low Osmolar Contrast (ICD-10-PCS; 2023-12-29)
PROC: B2181ZZ Fluoroscopy of Left Internal Mammary Bypass Graft using Low Osmolar Contrast (ICD-10-PCS; 2023-12-29)
PROC: B2151ZZ Fluoroscopy of Left Heart using Low Osmolar Contrast (ICD-10-PCS; 2023-12-29)
DX: T82.898A Other specified complication of vascular prosthetic devices, implants and grafts, initial encounter (principal); I50.22 Chronic systolic (congestive) heart failure; I21.4 Non-ST elevation (NSTEMI) myocardial infarction; I11.0 Hypertensive heart disease with heart failure; K21.9 Gastro-esophageal reflux disease without esophagitis; E78.5 Hyperlipidemia, unspecified; I25.10 Atherosclerotic heart disease of native coronary artery without angina pectoris; E11.40 Type 2 diabetes mellitus with diabetic neuropathy, unspecified; Z95.1 Presence of aortocoronary bypass graft; Z87.891 Personal history of nicotine dependence; I25.2 Old myocardial infarction
CPT/HCPCS: 36415; 36416; 71045; 80048; 80053; 80061; 83735; 83880; 84484; 85025; 85347; 85730; 93005; 93306; 93459; 93798; 94760; 96374; 96375; 96376; 99152; 99153; C1769; C1887; G0378; J1644; J2250; J2272; J3010; Q9967

== ENCOUNTER 2024-11-14 07:53 | Outpatient (CLI) | payer MEDICARE, BC ==
[2024-11-14 08:38] LABS: #Basophils 0.05 10x3/uL (0.0-0.2); #Eosinophils 0.19 10x3/uL (0.0-0.7); #Monocytes 0.57 10x3/uL (0.11-0.59); #Neutrophils 7.03 10x3/uL (1.40-6.50); %Basophils 0.5 % (0.0-1.0); %Eosinophils 2.0 % (0.0-10.0); %Lymphocytes 15.2 % (21.0-51.0); %Monocytes 6.1 % (0.0-10.0); %Neutrophils 75.9 % (42.0-75.0); Hematocrit 45.3 % (42.0-52.0); Hemoglobin 14.9 g/dL (14.0-18.0); Mean Corpuscular Hemoglobin 29.6 pg (27.0-31.0); Mean Corpuscular Volume 90.1 fL (78.0-98.0); Platelet Count 222 10x3/uL (130-400); Red Blood Cell (RBC) Count 5.03 mill/uL (4.70-6.10); White Blood Cell (WBC) Count 9.28 10x3/uL (4.8-10.8)
[2024-11-14 08:49] LABS: Anion Gap 17 mmol/L (10-20); BUN (Urea Nitrogen) 13 mg/dL (8.4-25.7); Calc. Creatinine Clearance 0 mL/min (70-130); Calcium 9.2 mg/dL (7.8-10.44); Carbon Dioxide 25 mmol/L (23-31); Chloride 102 mmol/L (98-107); Glucose 154 mg/dL (83-110); Potassium 4.7 mmol/L (3.5-5.1); Sodium 139 mmol/L (136-145)
[2024-11-14 09:01] LABS: INR-International Normal Ratio 0.9; Prothrombin Time 12.3 sec (12.0-14.7)
[2024-11-14 09:02] LABS: PTT 29.5 sec (22.9-36.1)
== END 2024-11-14 07:54 | disposition home or self-care (01) ==
LOC: LABBT 07:53
PROVIDERS: ATTEND Internal Medicine Cardiovascular Disease
DX: Z01.812 Encounter for preprocedural laboratory examination (principal); I50.22 Chronic systolic (congestive) heart failure; I47.20 Ventricular tachycardia, unspecified
CPT/HCPCS: 80048; 85025; 85610; 85730